=== PATIENT | female | born 1950 | race Caucasian/White ===

== ENCOUNTER → 2016-07-28 | Outpatient (CLI) | payer MEDICARE, BC ==
[2016-07-28 09:38] LABS: Basophils # (A) 0.1 k/uL (0-0.2); Basophils % (A) 1 %; CH 29.2; CHCM 34.5; Eosinophils # (A) 0.2 k/uL (0-0.7); Eosinophils % (A) 4 %; HCT 40.9 % (34.0-46.0); HDW 2.67; HGB 13.5 gm/dL (11.4-16.0); Luc # (Auto) 0.05; Luc % (Auto) 1; Lymphocytes # (A) 1.7 k/uL (1.0-4.8); Lymphocytes % (A) 28 %; MCH 28.1 pg (25.0-35.0); MCV 84.9 fL (80.0-100.0); Mean Platelet Volume 7.7; Monocytes # (A) 0.2 k/uL (0-1.0); Monocytes % (A) 4 %; Neutrophils # (A) 3.8 k/uL (1.3-7.7); Neutrophils % (A) 63 %; RBC 4.82 m/uL (3.80-5.40); RDW 13.1 % (11.5-15.5); WBC 6.1 k/uL (3.8-10.6)
[2016-07-28 10:41] LABS: ALT 30 U/L (9-52); AST 16 U/L (14-36); Alkaline Phosphatase 126 U/L (38-126); Anion Gap 13 mmol/L; Blood Urea Nitrogen 16 mg/dL (7-17); Calcium 9.3 mg/dL (8.4-10.2); Carbon Dioxide 23 mmol/L (22-30); Chloride 104 mmol/L (98-107); Cholesterol 191 mg/dL (<200); Glucose 98 mg/dL (74-99); HDL Cholesterol 54 mg/dL (40-60); Non-African American GFR(MDRD) >60 (>60 ml/min/1.73 sqM); Potassium 4.5 mmol/L (3.5-5.1); Sodium 140 mmol/L (137-145); Total Bilirubin 0.4 mg/dL (0.2-1.3); Total Protein 6.8 g/dL (6.3-8.2); Triglycerides 128 mg/dL (<150)
[2016-07-28 11:31] LABS: Vitamin B12 720 pg/mL
[2016-07-28 12:31] LABS: Erythrocyte Sedimentation Rate 25 mm/hr (0-20)
[2016-07-28 13:51] LABS: Hemoglobin A1C 5.7 % (4.2-6.1)
== END | disposition home or self-care (01) ==
LOC: LABWHC1 08:56
PROVIDERS: ATTEND Family Medicine
DX: R53.83 Other fatigue (principal); I10 Essential (primary) hypertension; E78.5 Hyperlipidemia, unspecified; R20.0 Anesthesia of skin; G89.29 Other chronic pain
CPT/HCPCS: 36415; 80053; 80061; 82607; 83036; 84443; 85025; 85652

== ENCOUNTER → 2016-08-24 | Outpatient (CLI) | payer MEDICARE, BC ==
--- NOTE | 2016-08-24 14:18 | MR ---
EXAMINATION TYPE: MR lumbar spine wo con DATE OF EXAM: 08/24/2016 12:45 PM COMPARISON: NONE HISTORY: Low back pain TECHNIQUE: Multiplanar, multisequence images of the lumbar spine were acquired. L1-L2: Broad-based posterior disc bulge causes mild anterior mass effect on the thecal sac. There is mild facet arthropathy. No significant foraminal encroachment or central stenosis. L2-L3: Normal disc appearance without desiccation. No herniation, protrusion or disc bulging. No ca nal stenosis is present. Foramina are patent bilaterally. L3-L4: Facet arthropathy change is present, there is mild posterior lateral mass effect on the thecal sac. Sequential extension of broad-based disc bulge encroaches mildly on the neural foramina. Mild a nterior mass effect on the thecal sac. L4-L5: Facet arthropathy with hypertrophy ligamentum flavum encroaches on the lateral recesses, circu mferential extension endplate disc complex results in bilateral foraminal encroachment. Left posterio r paracentral disc herniation causes anterolateral mass effect on the thecal sac, there may be synovi al cyst due to facet arthropathy at this level, focus of increased signal on T1 weighted images, inte rmediate to high signal on T2-weighted sequences is present at the left posterior paracentral disc sp twan. L5-S1: Facet arthropathy changes present. Circumferential extension of endplate disc complex encroach es on the neural foramina greater on the left, no significant central canal stenosis, broad-based pos terior disc bulge could possibly contact the proximal S1 nerve roots. Lumbar segments are intact. No paraspinal masses are identified. Conus medullaris has a normal appe arance. There is mild spinal curvature. Loss of disc height and signal is greatest at L4-5 with assoc iated vacuum phenomenon, there is multilevel spondylosis with endplate discogenic marrow signal ma e. Loss of disc height and signal also present L5-S1, L3-4, L1-2. IMPRESSION: Degenerative disc disease, facet arthropathy, foraminal encroachment as described. Post contrast imag es may be of benefit for better evaluation at L4-5 as indicated.
== END | disposition home or self-care (01) ==
LOC: RADMRIMAIN 12:08
PROVIDERS: ATTEND Family Medicine
DX: M51.36 Other intervertebral disc degeneration, lumbar region (principal); M46.96 Unspecified inflammatory spondylopathy, lumbar region
CPT/HCPCS: 72148

== ENCOUNTER → 2016-09-20 | Outpatient (CLI) | payer MEDICARE, BC ==
[2016-09-20 13:02] LABS: Non-African American GFR(MDRD) >60 (>60 ml/min/1.73 sqM)
== END | disposition home or self-care (01) ==
LOC: LABWHC1 12:15
PROVIDERS: ATTEND Psychiatry & Neurology Neurology
DX: Z01.812 Encounter for preprocedural laboratory examination (principal)
CPT/HCPCS: 36415; 82565

== ENCOUNTER 2016-11-04 08:12 | Day surgery (SDC) | payer MEDICARE, BC ==
[~2016-11-04 08:12] MED LIST: LACTATED RINGERS 1,000 ML IV SCH
[2016-11-04 08:46] VITALS: RESP 16; TEMP 98.6
[2016-11-04] MEDS ORDERED: LIDOCAINE 1% 20 ML VIAL (10MG/ML) FOR IV START INTRADERMA ONE (08:50)
[2016-11-04] MEDS ORDERED: MIDAZOLAM 2 MG/2 ML VIAL ONE (09:34)
[2016-11-04] MEDS ORDERED: fentaNYL (PF) 50 MCG/ML 2 ML AMP ONE (09:34)
--- NOTE | 2016-11-04 09:51 | P.PCN ---
Date of Procedure: 11/04/16 Procedure(s) Performed: Procedure=1-lumbar puncture . Preoperative diagnoses= multiple sclerosis. Postoperative diagnosis= multiple sclerosis. Anesthesia= IV sedation with Versed 2 mg and fentanyl 100 mcg and local lidocaine infiltration 1% 2 mL for skin and subcu infiltration. Condition= stable. Complications=none. Indication for the procedure= patient with a history of symptoms suggestive of multiple sclerosis and she was referred to have a lumbar puncture for diagnostic study procedure risk and benefits and alternatives discussed with the patient and she agreed with the preceding, Description of the procedure= patient in the procedure room sitting position and monitors applied, the back prepped with chlorhexidine 3, sterile technique , local infiltration of the skin and subcu interstitial with lidocaine 1% 2 mL, then 22-gauge quickie Needle advanced slowly at L4 5 interlaminar space, the cerebrospinal fluid was clear, and no heme no paresthesia, a total of 10 mL of clear cerebrospinal fluid collected in 4 different tubes, the needle removed , Band-Aid applied , patient tolerated the procedure well without any complications, and further management as per her neurologist
[2016-11-04 10:47] VITALS: BP 131/75; PULSE 55
[2016-11-04] MEDS ORDERED: IV FLUID CONTINUATION 1,000 ML IV ONE (10:49)
[2016-11-04 10:51] LABS: Glucose,CSF 52 mg/dL (40-70)
[2016-11-04 11:41] LABS: Appearance,CSF Clear
[2016-11-10 15:06] LABS: Immunoglobulin G 817 mg/dL (700 - 1600)
== END 2016-11-04 11:05 | disposition home or self-care (01) ==
LOC: ORPAIN 08:12
PROVIDERS: ATTEND Specialist
DX: G35 Multiple sclerosis (principal)
CPT/HCPCS: 84157; 82945; 82040; 82042; 82784; 83916; 89050; 87070; 87205; 62270; 99152; J2250; J3010

== ENCOUNTER → 2016-12-30 | Outpatient (CLI) | payer MEDICARE, BC ==
--- NOTE | 2016-12-30 13:52 | NM ---
EXAMINATION TYPE: NM bone 3 phase DATE OF EXAM: 12/30/2016 COMPARISON: 11/05/2009 HISTORY: Right knee pain Triple phase bone scintigraphy was performed following the injection of25.5 mCi Tc 99m MDP. Immediat e images and 5.5 hours post injection images acquired. FINDINGS: Again noted are bilateral knee prostheses. No evidence for abnormal increased angiographic blood pool accumulation. On delayed images there is increased uptake about the tip of the tibial component sugg esting possible loosening. Similar uptake is seen about the tibial plateau component of the right tib ia. Stable uptake about the left knee relative to thousand and 10. IMPRESSION: Correlate for possible right tibial component loosening.
== END | disposition home or self-care (01) ==
LOC: RADNMMAIN 07:29
PROVIDERS: ATTEND Orthopaedic Surgery
DX: M79.661 Pain in right lower leg (principal)
CPT/HCPCS: 78315; A9503

== ENCOUNTER → 2017-02-10 | Outpatient (CLI) | payer MEDICARE, BC | END | disposition home or self-care (01) | LOC: LABWHC1 13:10 | PROVIDERS: ATTEND Orthopaedic Surgery | DX: Z01.812 Encounter for preprocedural laboratory examination (principal) | CPT/HCPCS: 87070 ==

== ENCOUNTER 2017-03-08 06:33 | Inpatient (IN) | payer MEDICARE, BC ==
[2017-03-01 12:11] VITALS: BMI 36.8
--- NOTE | 2017-03-07 09:19 | HP ---
HISTORY AND PHYSICAL CHIEF COMPLAINT: Right knee pain. HISTORY OF PRESENT ILLNESS: The patient is a 67-year-old retired female who presents with progressive right knee pain for the past 6 months. It is limiting her normal function and activities. It increases after her initial first steps. She had her initial total knee arthroplasty performed in 2002. She denies fevers or chills. PAST MEDICAL HISTORY: Significant for arthritis, asthma, depression, hypertension, reflux disease. PAST SURGICAL HISTORY: Significant for bilateral total knee arthroplasty with subsequent left total knee revision arthroplasty, hysterectomy, polypectomy, vocal cord surgery. CURRENT MEDICATIONS: Current medications include: 1. Hydrochlorothiazide. 2. Nexium. 3. Zoloft. 4. Albuterol inhaler. 5. Nasacort. 6. Tramadol. ALLERGIES: She denies drug allergies. FAMILY HISTORY: Significant for cancer, Parkinson's. SOCIAL HISTORY: Significant for previous tobacco use, however, she quit in 1976. REVIEW OF SYSTEMS: Sixteen point review of systems otherwise reviewed and is noncontributory. PHYSICAL EXAMINATION: On examination, the patient is approximately 5 feet 4 inches, 195 pounds of endomorphic habitus. HEENT exam is nonfocal. Neck is supple. She has painless passive motion to right hip. Straight leg raise is negative. Active motion right knee -6 to 110 degrees of flexion. She has a mild effusion. She is tender about the proximal medial tibia. Collaterals are stable. Her distal neurovascular exam appears to be intact in the right lower extremity. Bone scan report from 12/30/2016 shows increased uptake involving the tibial component. X-rays showed significant lucency below the tibial base plate. 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 RECOMMENDATIONS: I talked to the patient and her regarding her treatment options. At this point, she opts to proceed with surgery. We will plan to proceed with revision arthroplasty. Risks and benefits were discussed at length in layman's terms. We will institute DVT prophylaxis postoperatively. The patient underwent preoperative medical evaluation by Dr. Kinney. BELINDA / MADIHA: [id number] /
[~2017-03-08 06:33] MED LIST changes: +ACETAMINOPHEN TAB 500 MG TAB PO ONE; +DEXAMETHASONE SOD PHOSPHATE 10 MG/ML 1 ML VIAL IV ONE; +HYDROmorphone 1 MG/ML 1 ML SYRINGE IVP PRN; -LACTATED RINGERS 1,000 ML IV SCH; +MELOXICAM 7.5 MG TAB PO ONE; +MIDAZOLAM 2 MG/2 ML VIAL IV PRN; +ONDANSETRON 4 MG/2 ML VIAL IVP ONE; +TRANEXAMIC ACID 1,000 MG in SODIUM CHLORIDE 0.9% 100 ML IVPB ONE; +ceFAZolin 2 GM in SODIUM CHLORIDE 0.9% 100 ML IVPB ONE
[2017-03-08] MEDS: LACTATED RINGERS 1,000 ML IV SCH ×3 (07:30→21:06)
[2017-03-08] MEDS ORDERED: LIDOCAINE 1% 20 ML VIAL (10MG/ML) FOR IV START INTRADERMA ONE (07:31)
[2017-03-08] MEDS ORDERED: fentaNYL (PF) 50 MCG/ML 2 ML AMP IVP ONE ×2 (07:48→08:10)
[2017-03-08] MEDS ORDERED: MIDAZOLAM 2 MG/2 ML VIAL IVP ONE ×2 (07:48→08:09)
[2017-03-08] MEDS ORDERED: TRANEXAMIC ACID 1,000 MG/10 ML VIAL ONE (08:01)
[2017-03-08] MEDS ORDERED: SODIUM CHLORIDE 0.9% 100 ML BAG ONE (08:01)
[2017-03-08] MEDS ORDERED: MIDAZOLAM 2 MG/2 ML VIAL ONE (08:01)
[2017-03-08] MEDS ORDERED: KETAMINE 10 MG/ML 20 ML VIAL ONE (08:01)
[2017-03-08] MEDS ORDERED: fentaNYL (PF) 50 MCG/ML 2 ML AMP ONE (08:01)
[2017-03-08] MEDS ORDERED: PROPOFOL 10 MG/ML 20 ML VIAL IV ONE (08:01)
[2017-03-08] MEDS ORDERED: ROPIVACAINE 246.25 MG, EPINEPHrine 0.5 MG, KETOROLAC 30 MG, cloNIDine HCL/PF 80 MCG, WA... MISCELLANE ONE ×5 (08:03)
[2017-03-08] MEDS ORDERED: ROPIVACAINE 1,100 MG, SODIUM CHLORIDE 0.9% 330 ML MISCELLANE PRN ×2 (08:27)
--- NOTE | 2017-03-08 08:29 | P.ONQ ---
Anesthesiology Proc Note - PNB - Peripheral Nerve Block Performed Right Adductor Canal Indication: Acute Post-Operative Pain, Dx/Pain Location (Dr Mata) Sedation Type: Sedate with meaningful contact maintained Preparation: Sterile Dressing Position: Supine Catheter: Indwelling Needle Types: Other (see comment) (Rafael) Needle Size: 100mm (4") Needle Gauge: 18 Technique: Ultrasound Injectate: 0.5% Ropivacaine (see comment for volume) (20cc) Blood Aspirated: No Pain Paresthesia on Injection Noted: No Resistance on Injection: Normal Events: Uneventful and Well Tolerated
[2017-03-08] MEDS ORDERED: ceFAZolin 3,000 MG in SODIUM CHLORIDE 0.9% IRRIGATIO 3,000 ML IRRIGATION ONE (08:47)
[2017-03-08] MEDS ORDERED: LACTATED RINGERS 1,000 ML IV ONE ×2 (08:49→10:27)
[2017-03-08] MEDS ORDERED: HYDROmorphone 1 MG/ML 1 ML SYRINGE IVP PRN (10:44)
[2017-03-08] MEDS ORDERED: MAGNESIUM HYDROXIDE 2,400 MG/10 ML CUP PO PRN (10:44)
[2017-03-08] MEDS ORDERED: NALOXONE 0.4 MG/ML 1 ML VIAL IV PRN (10:44)
[2017-03-08] MEDS ORDERED: ONDANSETRON 4 MG/2 ML VIAL IVP PRN (10:44)
[2017-03-08] MEDS ORDERED: HYDROcodone/APAP 7.5-325MG 1 EACH TAB PO PRN (10:44)
--- NOTE | 2017-03-08 11:15 | P.OP ---
Date of Procedure: 03/08/17 Preoperative Diagnosis: Aseptic loosening right total knee arthroplasty Postoperative Diagnosis: Same Procedure(s) Performed: Revision right total knee arthroplasty-cemented Implants: Bunny LCCK size E femoral stem, size 4 tibial baseplate, 13 mm x 100 mm femoral stem, 12 mm x 100 mm tibial stem, 17 mm articular surface Anesthesia: regional, local, spinal Surgeon: Octaviano Mata Geophysical Computer #1: Eddi Dewitt Estimated Blood Loss (ml): 100 Pathology: other (Synovial frozen section, bone fragments) Condition: stable Disposition: PACU Indications for Procedure: The patient's a 67-year-old female who recently had undergone right total knee arthroplasty approximately 14 years ago presented with progressive pain and clinically was noted to have evidence of aseptic loosening of her tibial component. A discussion of the risks and benefits of operative intervention was made with the patient. She opted to proceed. Operative risks to include fracture, infection, development of blood clots, possible neurovascular injury, possible loosening of components and need for subsequent procedures was discussed. Informed consent was obtained. Operative Findings: Significant ostial lysis proximal tibia Description of Procedure: The patient was brought to the operating room, and after induction of spinal anesthesia the right lower extremity was prepped and draped in normal fashion. The tourniquet was inflated to 270 mmHg. A longitudinal incision extending 3 finger breaths above the superior pole of the patella extending to the medial aspect the tibial tubercle was then made. Skin and subcutaneous tissues were divided sharply. Electrocautery was used for hemostasis. A medial parapatellar arthrotomy was performed. The medial soft tissues to include the superficial and deep portions of the medial collateral ligament were elevated subperiosteally. The patella was everted. The knee was then flexed. The polyethylene was easily removed. A sagittal saw was used to break the implant bone interface on the femoral and tibial components. The proximal tibial screws were removed. The femoral component was then extracted with minimal bone loss. The tibial component was extracted with minimal bone loss. A cavitary lesion involving the posterior medial proximal tibia was noted. The fibrous tissue was removed. I did send synovial tissue for a stat frozen section that was negative for acute inflammation. I started reaming the tibial canal up to a size 12. The tibial alignment guide was placed for a cleanup proximal tibial cut. The tibia sized most appropriate size 4. The tibia was prepared in the with the appropriate drill and keel punch. A trial size 4 component along with the 12 x 100 mm stem was then placed. There was good fit and stability. The rotation was aligned with the medial one third of the tibial tubercle. The trial component was then removed. Attention was then paid towards preparing the distal femur. The femoral canal was reamed up to a size 13. The distal cutting block was placed in a cleanup cut was made planning on 6 valgus distal cut. The sizing guide was utilized I felt size E was most appropriate. The cutting block was then placed. Rotation was parallel to the anterior femoral cortex. The cutting block was pinned in place. The anterior posterior chamfer cuts were made. I did not feel the need for augments. The proximal cutting guide was placed. The box cut was made with a reciprocating saw. The bone fragment was removed. The trial femoral components placed along with the trial tibial component. A 17 mm articular surfaces placed. I was able to obtain full flexion and extension with good stability with varus and valgus stress. The trial components were then removed. The bony surfaces were prepared with pulsatile lavage and dried. The posterior soft tissues were injected with ropivacaine. The patella was inspected and was felt to be stable. I had good patellofemoral tracking with no hands technique. The tibial component was then cemented in placed and was fully seated. Excess cement was removed. I made sure to cement the cavitary lesion. The femoral component was cemented in placed and was fully seated. Excess cement was removed. The trial 17 mm articular surface was placed. The knee was taken through range of motion. I had good stability in flexion and extension with varus valgus stress. I was able to obtain full flexion and extension. The trial articular surface was removed and the final one inserted. This was fully seated. The capture screw was tightened to the appropriate torque. Pulsatile lavage was again utilized. The medial parapatellar arthrotomy was closed with #2 Ethibond suture. I deflated the tourniquet with approximately 1 hour 47 minutes total tourniquet time. Final hemostasis was obtained with electrocautery. The subcu tissues reapproximated interrupted 2-0 Vicryl sutures. The skin was reapproximated with 3-0 subcuticular strata fix suture. Skin tape and adhesive was applied. A sterile dressing was applied. The patient was awoken from sedation and transferred to the recovery room in good condition. Blood loss was estimated at 1 mL. No complications were incurred. Sponge and needle counts were correct at the end the case.
[2017-03-08] MEDS: HYDROmorphone 1 MG/ML 1 ML SYRINGE IVP PRN (13:13)
--- NOTE | 2017-03-08 14:20 | XR ---
EXAMINATION TYPE: XR knee limited RT DATE OF EXAM: 03/08/2017 COMPARISON: NONE TECHNIQUE: Two views submitted HISTORY: Post op FINDINGS: There is a prosthetic knee in near anatomic alignment. There is soft tissue edema and emphysema. Morgan rgical drain noted. IMPRESSION: 1. Postoperative change. Appears in near-anatomic alignment
[2017-03-08] MEDS: HYDROcodone/APAP 7.5-325MG 1 EACH TAB PO PRN (16:31)
[2017-03-08] MEDS: ceFAZolin 2 GM in SODIUM CHLORIDE 0.9% 100 ML IVPB SCH ×2 (16:32→23:13)
[2017-03-08] MEDS ORDERED: ALBUTEROL NEBULIZED 2.5 MG/3 ML INHALATION PRN (20:48)
[2017-03-08] MEDS: SERTRALINE 100 MG TAB PO SCH (22:56)
[2017-03-08] MEDS: SENNOSIDES-DOCUSATE SODIUM 1 EACH TAB PO SCH (22:56)
[2017-03-08] MEDS: FLUTICASONE 50MCG/SPRAY NASAL 16GM EA NOSTRIL SCH (22:57)
[2017-03-09] MEDS: HYDROcodone/APAP 7.5-325MG 1 EACH TAB PO PRN ×5 (00:08→22:05)
[2017-03-09] MEDS: HYDROmorphone 1 MG/ML 1 ML SYRINGE IVP PRN (01:40)
[2017-03-09 07:29] LABS: Basophils % (A) 0 %; CH 28.1; CHCM 33.8; Eosinophils # (A) 0.1 k/uL (0-0.7); Eosinophils % (A) 1 %; HCT 31.5 % (34.0-46.0); HDW 2.71; HGB 10.4 gm/dL (11.4-16.0); Luc % (Auto) 1; Lymphocytes # (A) 2.4 k/uL (1.0-4.8); Lymphocytes % (A) 24 %; MCH 27.7 pg (25.0-35.0); MCHC 33.2 g/dL (31.0-37.0); MCV 83.4 fL (80.0-100.0); Mean Platelet Volume 8.4; Monocytes # (A) 0.4 k/uL (0-1.0); Monocytes % (A) 4 %; Neutrophils # (A) 7.1 k/uL (1.3-7.7); Neutrophils % (A) 71 %; RBC 3.77 m/uL (3.80-5.40); RDW 15.6 % (11.5-15.5); WBC 10.1 k/uL (3.8-10.6); WBC (Perox) 10.47
--- NOTE | 2017-03-09 08:20 | P.PN ---
Progress Note - Text The patient is status post right adductor canal catheter placement. The catheter was placed for postoperative pain control, status post total right arthroplasty. Ropivacaine 0.2% is infusing at 8 mLs per hour. The patient has no complaints of right lower extremity numbness or weakness. Patient's VAS score is 2-3 -10. Assessment: Patient's adductor canal catheter is in place and working appropriately. Plan: continue infusion and adjust it as needed.
[2017-03-09] MEDS: RIVAROXABAN 10 MG TAB PO SCH (10:05)
[2017-03-09] MEDS: FAMOTIDINE 20 MG TAB PO SCH (10:05)
--- NOTE | 2017-03-09 11:24 | P.PN ---
Subjective Principal diagnosis: Status post excision right total knee arthroplasty Patient seen today resting in her hospital bed, she appears comfortable. States her pain is well-controlled. Sternal therapy. Urinary cath was discontinued. She denies any lightheadedness, headaches, chest pain, shortness of breath. Objective - Vital Signs Vital signs: Vital Signs Temp 98.4 F 03/09/17 01:17 Pulse 102 H 03/09/17 07:24 Resp 18 03/09/17 01:17 BP 137/70 03/09/17 07:24 Pulse Ox 96 03/09/17 07:24 Intake & Output 03/08/17 03/09/17 03/09/17 18:59 06:59 18:59 Intake Total 2881 600 Output Total 300 1090 Balance 2581 -490 Weight 94.347 kg Intake: IV 2301 600 Lactated Ringers 1,000 ml 600 @ 50 mls/hr IV .Q20H JEAN Rx#:[id number] Intake, IV Titration 100 Amount Lactated Ringers 1,000 ml 100 @ 50 mls/hr IV .Q20H JEAN Rx#:[id number] Oral 480 Output: Drainage 150 Right Knee 150 Urine 200 940 Uretheral (Blanchard) 940 Estimated Blood Loss 100 Other: Voiding Method Indwelling Catheter Indwelling Catheter Indwelling Catheter - Exam Right lower extremity: Incision is clean, dry, and intact. Minimal ecchymosis surrounding the anterior aspect of the knee. Calf soft, no tenderness with palpation. Plantar flexion, dorsiflexion, EHL, FHL are intact. Sensation to light touch throughout the extremities intact. Dorsal pedis pulses 2+ - Labs CBC & Chem 7: 03/09/17 06:28 Labs: Abnormal Lab Results - Last 24 Hours (Table) 03/09/17 Range/Units 06:28 RBC 3.77 L (3.80-5.40) m/uL Hgb 10.4 L (11.4-16.0) gm/dL Hct 31.5 L (34.0-46.0) % RDW 15.6 H (11.5-15.5) % Assessment and Plan Plan: Assessment: 1. Post op day #1 status post revision right total knee arthroplasty Plan: 1. Pain control, continue supportive oral medication 2. Continue therapy and use of CPM 3. Encourage incentive spirometer 4. Daily dressing changes/ice and elevate 5. GI and DVT prophylaxis, continue Xarelto 10 mg 6. Medical recommendations 7. Discharge planning: Patient will be likely discharged tomorrow Time with Patient: Less than 30
--- NOTE | 2017-03-09 11:27 | P.DS ---
Providers Date of admission: 03/08/17 06:33 Expected date of discharge: 03/10/17 Attending physician: Octaviano Mata Consults: 03/08/17 10:44 Consult Physician Routine Consulting Provider: Mario Elise Consult Reason/Comments: Medical Management Do you want consulting provider notified?: Yes Primary care physician: Martha Quach Hospital Course: Date of admission: 03/08/2017 Date of discharge: [id number] Admission diagnosis: Status post revision right total knee arthroplasty Discharge diagnosis: Same Attending physician: Dr. Mata Surgical procedures: Revision right total knee arthroplasty Brief history: Patient is a 67-year-old female with a history of of previous right total knee arthroplasty. Patient has noticed increasing pain in the knee for some time, she was evaluated by Dr. Mata in the outpatient setting. At this point patient h was determined after further testing that there was a septic loosening of the implants. Patient wasn't scheduled for a revision right total knee arthroplasty. Hospital course: Details of patient's surgery can be found in operative report. Patient tolerated the procedure well and was subsequently transported to orthopedic floor. Patient's orthopeidc and medical care was provided daily. Patient had daily laboratory tests performed for evaluation of overall blood counts. Patient had daily physical therapy to include strengthening range of motion as well as education with walker ambulation. Patient had daily CPM usage as part of their physical therapy program. Patient was treated with Xarelto for their postoperative DVT prophylaxis during their inpatient stay. Patient was noted to have a relatively uneventful postoperative course. Patient reported satisfactory pain control with oral pain medications by postoperative day 0. Patient showed satisfactory progress with physical therapy. Patient moved steadily through the program and had no difficulty meeting the goals by postoperative day 2. Given patient's otherwise satisfactory course and having met physical therapy goals, plan is to discharge patient home on postoperative day 2. Discharge condition/disposition: Patient will be discharged home in stable condition. Discharge medications: Instructions are given on resumption of patient's normal daily medications per primary care recommendation, in addition patient will be prescribed [place] 7.5 mg/325 mg, Colace 100 mg, Xarelto 10 mg. Discharge instructions: 1. Wound care and infection precautions, keep incision dry and covered while showering, no lotions, creams, moisturizers. No soaking, tubs, pools, hottubs. Do not scrub over the incision. 2. Weight-bear as tolerated with walker / cane until follow-up. 3. Ice and elevate when necessary. Do not exceed 20 minutes per hour with ice pack. 4. Utilize compression sleeve until seen at first follow up appointment. 5. Visiting nursing care. 6. Home physical therapy including home CPM. 7. Pain meds and anticoagulants per prescription. 8. Pain medication has potential to cause constipation. Increase oral fluid and fiber intake. Contact primary care provider if you have not had a bowel movement within 48 hours after discharge 9. No anti-inflammatory medication until discussed at first post operative visit, this including Motrin, Aleve, Mobic, Diclofenac. 10. Follow up in office at 2 weeks postop with Benji Dewitt PA-C 11. Follow up with your primary care doctor 7-10 days after discharge. 12. Contact [facility] with any questions, . Procedures: Revision right total knee arthroplasty Patient Condition at Discharge: Good Plan - Discharge Summary New Discharge Prescriptions: New Rivaroxaban [Xarelto] 10 mg PO DAILY #12 tab Docusate [Colace] 100 mg PO DAILY #30 capsule HYDROcodone/APAP 7.5-325MG [[place] 7.5] 1 - 2 each PO Q6HR PRN #60 tab PRN Reason: Pain No Action Magnesium Gluconate [Magonate] 500 mg PO DAILY Fluticasone/Salmeterol [Advair 250-50 Diskus] 1 puff INHALATION RT-DAILY PRN PRN Reason: Shortness Of Breath Fluticasone Nasal [place] [Flonase Nasal [place]] 1 spr EA NOSTRIL HS Esomeprazole Magnesium [NexIUM] 40 mg PO QAM Cholecalciferol [Vitamin D3] 1,000 unit PO DAILY Biotin 10,000 mcg PO DAILY Albuterol Sulfate [Proair Hfa] 2 puff INHALATION RT-Q6H PRN PRN Reason: Shortness Of Breath traMADol HCL [Ultram] 50 mg PO TID PRN PRN Reason: Pain Sertraline [Zoloft] 100 mg PO HS Aspirin 325 mg PO DAILY Losartan-Hctz 50-12.5 mg [Hyzaar 50-12.5] 1 tab PO QAM Cetirizine HCl 10 mg PO DAILY Discharge Medication List Albuterol Sulfate [Proair Hfa] 2 puff INHALATION RT-Q6H PRN 02/09/16 [History] Biotin 10,000 mcg PO DAILY 02/09/16 [History] Cholecalciferol [Vitamin D3] 1,000 unit PO DAILY 02/09/16 [History] Esomeprazole Magnesium [NexIUM] 40 mg PO QAM 02/09/16 [History] Fluticasone Nasal [place] [Flonase Nasal [place]] 1 spr EA NOSTRIL HS 02/09/16 [ History] Fluticasone/Salmeterol [Advair 250-50 Diskus] 1 puff INHALATION RT-DAILY PRN [History] Magnesium Gluconate [Magonate] 500 mg PO DAILY 02/09/16 [History] Sertraline [Zoloft] 100 mg PO HS 02/10/16 [History] traMADol HCL [Ultram] 50 mg PO TID PRN 02/10/16 [History] Aspirin 325 mg PO DAILY 03/01/17 [History] Cetirizine HCl 10 mg PO DAILY 03/01/17 [History] Losartan-Hctz 50-12.5 mg [Hyzaar 50-12.5] 1 tab PO QAM 03/01/17 [History] Rivaroxaban [Xarelto] 10 mg PO DAILY #12 tab 03/08/17 [Rx] Docusate [Colace] 100 mg PO DAILY #30 capsule 03/10/17 [Rx] HYDROcodone/APAP 7.5-325MG [[place] 7.5] 1 - 2 each PO Q6HR PRN #60 tab 03/10/17 [ Rx] Follow up Appointment(s)/Referral(s): [facility], [NON-STAFF] - Eddi Dewitt PAC [PHYSICIAN WIRE STRETCHER] - 03/25/17 2:10 pm Activity/Diet/Wound Care/Special Instructions: Orthopedic Discharge Instructions: 1. Wound care and infection precautions, keep incision dry and covered while showering, no lotions, creams, moisturizers. No soaking, pools, hot tubs. Do not scrub over incision. 2. Weight-bear as tolerated with walker / cane until follow-up. 3. Ice and elevate when necessary. Do not exceed 20 minutes per hour with ice pack. 4. Utilize compression sleeve until seen at first follow up appointment. 5. Visiting nursing care. 6. Home physical therapy including home CPM. 7. Pain meds and anticoagulants per prescription. 8. Pain medication has potential to cause constipation. Increase oral fluid and fiber intake. Contact primary care provider if you have not had a bowel movement within 48 hours after discharge. 9. No anti-inflammatory medication until discussed at first post operative visit, this including Motrin, Aleve, Mobic, Diclofenac. 10. Follow up in office at 2 weeks postop with Benji Dewitt PA-C 11. Follow up with your primary care doctor 7-10 days after discharge. 12. Contact [facility] with any questions, . Discharge Disposition: HOME WITH HOME HEALTH SERVICES
--- NOTE | 2017-03-09 12:06 | P.CONS ---
History of Present Illness - Reason for Consult Consult date: 03/08/17 Issues regarding antidepressive medications - History of Present Illness Patient is a pleasant 60-year-old female admitted for left knee arthroplasty patient successfully underwent surgery patient denied any fever, chills, nausea , vomiting, abdominal pain, dysuria patient fully catheter was removed and patient has some soreness. Patient is on antihypertensive medications which are being held at this time because of concerns of perioperative hypotension. Review of Systems REVIEW OF SYSTEMS: CONSTITUTIONAL: No fever, no malaise, no fatigue. HEENT: No recent visual problems or hearing problems. Denied any sore throat. CARDIOVASCULAR: No chest pain, orthopnea, PND, no palpitations, no syncope. PULMONARY: No shortness of breath, no cough, no hemoptysis. GASTROINTESTINAL: No diarrhea, no nausea, no vomiting, no abdominal pain. Normoactive bowel sounds. NEUROLOGICAL: No headaches, no weakness, no numbness. HEMATOLOGICAL: Denies any bleeding or petechiae. GENITOURINARY: Denies any burning micturition, frequency, or urgency. MUSCULOSKELETAL/RHEUMATOLOGICAL: Denies any joint pain, swelling, or any muscle pain. ENDOCRINE: Denies any polyuria or polydipsia. The rest of the 14-point review of systems is negative. Past Medical History Past Medical History: Asthma, GERD/Reflux, Hypertension, Osteoarthritis (OA) Additional Past Medical History / Comment(s): CONSTIPATION/DIARRHEA on occassion. Chronic back pain. Cut right hand 6 months ago with chainsaw, had stitches. History of Any Multi-Drug Resistant Organisms: None Reported Past Surgical History: Hysterectomy, Joint Replacement Additional Past Surgical History / Comment(s): ANAHY KNEES ARTHROSCOPY AND REPLACEMENT, throat surgery, pain clinic procedures. Past Anesthesia/Blood Transfusion Reactions: No Reported Reaction Past Psychological History: Anxiety, Depression Smoking Status: Former smoker Past Alcohol Use History: Rare Additional Past Alcohol Use History / Comment(s): QUIT SMOKING IN 1970'S, SMOKED 1 AND 1/2 PPD, STARTED IN Past Drug Use History: None Reported Additional Drug Use History / Comment(s): "ORANGE WEDGE IN THE 60S" - Past Family History Father Family Medical History: Cancer Additional Family Medical History / Comment(s): Throat cancer Sister(s) Family Medical History: Cancer Additional Family Medical History / Comment(s): 2 AUNTS BREAST CANCER Medications and Allergies Home Medications Medication Instructions Recorded Confirmed Type Albuterol Sulfate [Proair Hfa] 2 puff INHALATION RT-Q6H PRN 02/09/16 03/08/17 History Biotin 10,000 mcg PO DAILY 02/09/16 03/08/17 History Cholecalciferol [Vitamin D3] 1,000 unit PO DAILY 02/09/16 03/08/17 History Esomeprazole Magnesium [NexIUM] 40 mg PO QAM 02/09/16 03/08/17 History Fluticasone Nasal [place] [Flonase 1 spr EA NOSTRIL HS 02/09/16 03/08/17 History Nasal [place]] Fluticasone/Salmeterol [Advair 1 puff INHALATION RT-DAILY PRN 02/09/16 03/08/17 History 250-50 Diskus] Magnesium Gluconate [Magonate] 500 mg PO DAILY 02/09/16 03/08/17 History Sertraline [Zoloft] 100 mg PO HS 02/10/16 03/08/17 History traMADol HCL [Ultram] 50 mg PO TID PRN 02/10/16 03/08/17 History Aspirin 325 mg PO DAILY 03/01/17 03/08/17 History Cetirizine HCl 10 mg PO DAILY 03/01/17 03/08/17 History Losartan-Hctz 50-12.5 mg [Hyzaar 1 tab PO QAM 03/01/17 03/08/17 History 50-12.5] Rivaroxaban [Xarelto] 10 mg PO DAILY #12 tab 03/08/17 Rx Allergies Allergy/AdvReac Type Severity Reaction Status Date / Time No Known Allergies Allergy Verified 03/08/17 18:06 Physical Exam Vitals: Vital Signs Temp Pulse Pulse Resp BP Pulse Ox 03/09/17 07:24 102 H 137/70 96 03/09/17 01:17 98.4 F 74 18 128/68 93 L 03/09/17 00:00 16 03/08/17 20:33 98.0 F 78 16 112/84 96 03/08/17 20:00 16 03/08/17 13:00 71 143/82 96 03/08/17 12:45 88 117/96 93 L 03/08/17 12:30 89 112/68 97 03/08/17 12:15 84 117/75 98 Intake and Output 03/08/17 03/09/17 03/09/17 22:59 06:59 14:59 Intake Total 200 400 Output Total 50 1040 500 Balance 150 -640 -500 Intake: IV 200 400 Lactated Ringers 1,000 ml 200 400 @ 50 mls/hr IV .Q20H JEAN Rx#:[id number] Output: Drainage 50 100 Right Knee 50 100 Urine 940 500 Uretheral ([place]) 940 500 Other: Voiding Method Indwelling Catheter Indwelling Catheter PHYSICAL EXAMINATION: GENERAL: The patient is alert and oriented x3, not in any acute distress. Well developed, well nourished. HEENT: Pupils are round and equally reacting to light. EOMI. No scleral icterus. No conjunctival pallor. Normocephalic, atraumatic. No pharyngeal erythema. No thyromegaly. CARDIOVASCULAR: S1 and S2 present. No murmurs, rubs, or gallops. PULMONARY: Chest is clear to auscultation, no wheezing or crackles. ABDOMEN: Soft, nontender, nondistended, normoactive bowel sounds. No palpable organomegaly. MUSCULOSKELETAL: Deferred to orthopedic surgery EXTREMITIES: No cyanosis, clubbing, or pedal edema. NEUROLOGICAL: Gross neurological examination did not reveal any focal deficits. SKIN: No rashes. Results CBC & Chem 7: 03/09/17 06:28 Labs: Abnormal Lab Results - Last 24 Hours (Table) 03/09/17 Range/Units 06:28 RBC 3.77 L (3.80-5.40) m/uL Hgb 10.4 L (11.4-16.0) gm/dL Hct 31.5 L (34.0-46.0) % RDW 15.6 H (11.5-15.5) % Assessment and Plan Plan: #1 right total knee arthroplasty: Pain management due to prophylaxis per primary service. We will monitor for perioperative complications which patient doesn't have any at this point of time. #2 hypertension: Hold off her home antidepressive medication except for beta leeann with concerns of perioperative hypotension is expected after surgery. Can be resumed at the time of discharge. Next line #3 asthma: Patient is not in acute exacerbation #4 gastroesophageal reflux disease next and #5 osteoarthritis For above-mentioned chronic medical problems patient can continue her home medications. We'll follow the patient on as-needed basis thank you for letting [facility] in this patient's care.
[2017-03-09] MEDS: traMADol 50 MG TAB PO PRN ×2 (13:51→19:35)
[2017-03-09] MEDS: SENNOSIDES-DOCUSATE SODIUM 1 EACH TAB PO SCH (20:55)
[2017-03-09] MEDS: FLUTICASONE 50MCG/SPRAY NASAL 16GM EA NOSTRIL SCH (20:56)
[2017-03-09] MEDS: SERTRALINE 100 MG TAB PO SCH (20:56)
[2017-03-09] MEDS: LOSARTAN-HCTZ 50-12.5 MG 1 EACH TAB PO SCH (21:28)
[2017-03-10] MEDS: traMADol 50 MG TAB PO PRN ×3 (01:02→13:29)
[2017-03-10] MEDS ORDERED: LABETALOL 200 MG TAB PO STA (03:16)
[2017-03-10] MEDS: HYDROcodone/APAP 7.5-325MG 1 EACH TAB PO PRN (03:43)
[2017-03-10 04:42] VITALS: PULSE 85
[2017-03-10 07:17] VITALS: RESP 16; TEMP 98.4
[2017-03-10] MEDS: LOSARTAN-HCTZ 50-12.5 MG 1 EACH TAB PO SCH (09:47)
[2017-03-10 09:49] VITALS: BP 104/66
--- NOTE | 2017-03-10 10:33 | P.PN ---
Subjective Principal diagnosis: Status post excision right total knee arthroplasty Patient seen today resting in her hospital bed, she appears comfortable. She denies any lightheadedness, headaches, chest pain, shortness of breath. Objective - Vital Signs Vital signs: Vital Signs Temp 98.4 F 03/10/17 07:00 Pulse 85 03/10/17 07:00 Resp 16 03/10/17 07:00 BP 104/66 03/10/17 09:48 Pulse Ox 95 03/10/17 07:00 Intake & Output 03/09/17 03/10/17 03/10/17 18:59 06:59 18:59 Intake Total 100 Output Total 500 Balance -400 Intake: IV 100 Lactated Ringers 1,000 ml 100 @ 50 mls/hr IV .Q20H JEAN Rx#:[id number] Output: Urine 500 Uretheral ([place]) 500 Other: Voiding Method Indwelling Catheter Toilet # Voids 1 - Exam Right lower extremity: Incision is clean, dry, and intact. Minimal ecchymosis surrounding the anterior aspect of the knee. Calf soft, no tenderness with palpation. Plantar flexion, dorsiflexion, EHL, FHL are intact. Sensation to light touch throughout the extremities intact. Dorsal pedis pulses 2+ - Labs CBC & Chem 7: 03/09/17 06:28 Assessment and Plan Plan: Assessment: 1. Post op day #2 status post revision right total knee arthroplasty Plan: 1. Pain control, will be discharged home on oral medication 2. Continue therapy and use of CPM 3. Encourage incentive spirometer 4. Daily dressing changes/ice and elevate 5. GI and DVT prophylaxis, will be discharged home on Xarelto 10 mg 6. Medical recommendations 7. Discharge planning: Patient will be discharged home today Time with Patient: Less than 30
[2017-03-10] MEDS: RIVAROXABAN 10 MG TAB PO SCH (11:13)
[2017-03-10] MEDS: FAMOTIDINE 20 MG TAB PO SCH (11:13)
--- NOTE | 2017-03-10 13:55 | P.PN ---
Subjective Patient is a pleasant 60-year-old female admitted for left knee arthroplasty patient successfully underwent surgery, clinically doing well is being discharged today. I did review the medication reconciliation Hyzaar will be held until she sees her primary doctor as her blood pressure is on the low normal side with systolics going up to as low as high 90s and low 100s which is not unexpected of post surgery. Patient denied any fever, chills, chest pain, nausea, vomiting dysuria. Objective - Vital Signs Vital signs: Vital Signs Temp 98.4 F 03/10/17 07:00 Pulse 85 03/10/17 07:00 Resp 16 03/10/17 07:00 BP 104/66 03/10/17 09:48 Pulse Ox 95 03/10/17 07:00 Intake & Output 03/09/17 03/10/17 03/10/17 18:59 06:59 18:59 Intake Total 100 Output Total 500 Balance -400 Intake: IV 100 Lactated Ringers 1,000 ml 100 @ 50 mls/hr IV .Q20H JEAN Rx#:[id number] Output: Urine 500 Uretheral ([place]) 500 Other: Voiding Method Indwelling Catheter Toilet # Voids 1 3 - Exam GENERAL: The patient is alert and oriented x3, not in any acute distress. Well developed, well nourished. HEENT: Pupils are round and equally reacting to light. EOMI. No scleral icterus. No conjunctival pallor. Normocephalic, atraumatic. No pharyngeal erythema. No thyromegaly. CARDIOVASCULAR: S1 and S2 present. No murmurs, rubs, or gallops. PULMONARY: Chest is clear to auscultation, no wheezing or crackles. ABDOMEN: Soft, nontender, nondistended, normoactive bowel sounds. No palpable organomegaly. MUSCULOSKELETAL: Deferred to orthopedic surgery EXTREMITIES: No cyanosis, clubbing, or pedal edema. NEUROLOGICAL: Gross neurological examination did not reveal any focal deficits. SKIN: No rashes. - Labs CBC & Chem 7: 03/09/17 06:28 Assessment and Plan Plan: #1 right total knee arthroplasty: Pain management due to prophylaxis per primary service. We will monitor for perioperative complications which patient doesn't have any at this point of time. #2 hypertension: #3 asthma: Patient is not in acute exacerbation #4 gastroesophageal reflux disease next and #5 osteoarthritis Patient can be discharged and patient is medically stable to be discharged and a had antidepressive medication need to be held until cc her primary doctor
== END 2017-03-10 14:10 | disposition home health service (06) | DRG 468 ==
LOC: 2ORMAIN 06:33 → 3SUR 11:36
PROVIDERS: ADMIT Orthopaedic Surgery; ATTEND Orthopaedic Surgery
PROC: 0SPC0JZ Removal of Synthetic Substitute from Right Knee Joint, Open Approach (ICD-10-PCS; principal; 2017-03-08 08:00)
PROC: 0SRC0J9 Replacement of Right Knee Joint with Synthetic Substitute, Cemented, Open Approach (ICD-10-PCS; principal; 2017-03-08 08:00)
DX: T84.032A Mechanical loosening of internal right knee prosthetic joint, initial encounter (principal); I10 Essential (primary) hypertension; J45.909 Unspecified asthma, uncomplicated; K21.9 Gastro-esophageal reflux disease without esophagitis; Y83.1 Surgical operation with implant of artificial internal device as the cause of abnormal reaction of the patient, or of later complication, without mention of misadventure at the time of the procedure; Z79.01 Long term (current) use of anticoagulants; Z79.82 Long term (current) use of aspirin; Z79.899 Other long term (current) drug therapy; Z80.3 Family history of malignant neoplasm of breast; Z80.8 Family history of malignant neoplasm of other organs or systems; Z82.0 Family history of epilepsy and other diseases of the nervous system; Z87.891 Personal history of nicotine dependence
CPT/HCPCS: 85025; 88305; 88331; 94760

== ENCOUNTER → 2017-06-23 | Outpatient (CLI) | payer MEDICARE, BC ==
[2017-06-23 13:15] LABS: ALT 36 U/L (9-52); AST 19 U/L (14-36); Alkaline Phosphatase 128 U/L (38-126); Anion Gap 9 mmol/L; Blood Urea Nitrogen 20 mg/dL (7-17); Calcium 9.6 mg/dL (8.4-10.2); Carbon Dioxide 29 mmol/L (22-30); Chloride 103 mmol/L (98-107); Cholesterol 220 mg/dL (<200); Glucose 101 mg/dL (74-99); HDL Cholesterol 67 mg/dL (40-60); Non-African American GFR(MDRD) >60 (>60 ml/min/1.73 sqM); Potassium 4.7 mmol/L (3.5-5.1); Sodium 141 mmol/L (137-145); Total Bilirubin 0.3 mg/dL (0.2-1.3); Total Protein 6.6 g/dL (6.3-8.2)
== END | disposition home or self-care (01) ==
LOC: LABWHC1 11:43
PROVIDERS: ATTEND Family Medicine
DX: E78.5 Hyperlipidemia, unspecified (principal); I10 Essential (primary) hypertension
CPT/HCPCS: 36415; 80053; 80061

== ENCOUNTER → 2018-01-09 | Outpatient (CLI) | payer MEDICARE, BC ==
[2018-01-09 10:25] LABS: Basophils # (A) 0.1 k/uL (0-0.2); Basophils % (A) 1 %; Eosinophils # (A) 0.3 k/uL (0-0.7); Eosinophils % (A) 5 %; HCT 37.5 % (34.0-46.0); HGB 12.6 gm/dL (11.4-16.0); Lymphocytes # (A) 2.1 k/uL (1.0-4.8); Lymphocytes % (A) 34 %; MCH 27.7 pg (25.0-35.0); MCHC 33.5 g/dL (31.0-37.0); MCV 82.7 fL (80.0-100.0); Mean Platelet Volume 7.3; Monocytes # (A) 0.2 k/uL (0-1.0); Monocytes % (A) 4 %; Neutrophils # (A) 3.3 k/uL (1.3-7.7); Neutrophils % (A) 55 %; Platelet Count 263 k/uL (150-450); RBC 4.53 m/uL (3.80-5.40); RDW 14.5 % (11.5-15.5)
[2018-01-09 10:51] LABS: ALT 29 U/L (9-52); AST 18 U/L (14-36); Albumin 3.9 g/dL (3.5-5.0); Alkaline Phosphatase 112 U/L (38-126); Anion Gap 5 mmol/L; Blood Urea Nitrogen 18 mg/dL (7-17); Calcium 9.3 mg/dL (8.4-10.2); Carbon Dioxide 30 mmol/L (22-30); Chloride 105 mmol/L (98-107); Cholesterol 200 mg/dL (<200); Glucose 101 mg/dL (74-99); HDL Cholesterol 56 mg/dL (40-60); LDL Cholesterol,Calculated 125 mg/dL (0-99); Potassium 4.7 mmol/L (3.5-5.1); Sodium 140 mmol/L (137-145); Total Bilirubin 0.2 mg/dL (0.2-1.3); Total Protein 6.5 g/dL (6.3-8.2); Triglycerides 94 mg/dL (<150)
== END | disposition home or self-care (01) ==
LOC: LABWHC1 09:34
PROVIDERS: ATTEND Family Medicine
DX: I10 Essential (primary) hypertension (principal)
CPT/HCPCS: 36415; 80053; 80061; 85025

== ENCOUNTER → 2018-08-01 | Outpatient (CLI) | payer MEDICARE, BC ==
[2018-08-01 13:05] LABS: Basophils # (A) 0.1 k/uL (0-0.2); Basophils % (A) 1 %; Eosinophils # (A) 0.4 k/uL (0-0.7); Eosinophils % (A) 6 %; HCT 38.3 % (34.0-46.0); HGB 12.4 gm/dL (11.4-16.0); Lymphocytes # (A) 2.2 k/uL (1.0-4.8); Lymphocytes % (A) 33 %; MCH 27.4 pg (25.0-35.0); MCHC 32.4 g/dL (31.0-37.0); MCV 84.6 fL (80.0-100.0); Mean Platelet Volume 7.6; Monocytes # (A) 0.2 k/uL (0-1.0); Monocytes % (A) 4 %; Neutrophils # (A) 3.8 k/uL (1.3-7.7); Neutrophils % (A) 56 %; Platelet Count 283 k/uL (150-450); RBC 4.53 m/uL (3.80-5.40); RDW 14.7 % (11.5-15.5); WBC 6.8 k/uL (3.8-10.6)
[2018-08-01 20:45] LABS: Albumin 4.1 g/dL (3.80-4.90); Albumin/Globulin Ratio 1.95 (1.60-3.17); Anion Gap 7.8 mmol/L (4.00-12.00); Calcium 9.2 mg/dL (8.7-10.3); Carbon Dioxide 26.2 mmol/L (21.6-31.8); Globulin 2.1 g/dL (1.6-3.3); LDL Cholesterol,Calculated 131.4 mg/dL (0.0-131.0); Potassium 4.8 mmol/L (3.5-5.5); Total Bilirubin 0.3 mg/dL (0.3-1.2); Total Protein 6.2 g/dL (6.2-8.2); VLDL Calculation 15.6 mg/dL (5.00-40.00)
== END | disposition home or self-care (01) ==
LOC: LABWHC1 11:57
PROVIDERS: ATTEND Family Medicine
DX: I10 Essential (primary) hypertension (principal)
CPT/HCPCS: 36415; 80053; 80061; 85025

== ENCOUNTER → 2023-10-05 | Outpatient (CLI) | payer MEDICARE ==
[2023-10-05 10:12] VITALS: BP 124/82; PULSE 73; RESP 15; TEMP 98.5
--- NOTE | 2023-10-05 13:48 | P.PAINPG ---
PQRS Measure Charge Sheet Comment: HISTORY OF PRESENT ILLNESS: A 73 yr old female as a referral from [facility] presents today w severe and chronic LBP x 1 yr secondary to DDD, spondylosis and facet arthropathy without myelopathy for evaluation. Pt states pain level is provoked at 9 /10 in intensity, constant, localized in the lumbar spine, predominantly axial, tingling in character w occasional shooting pain towards the back of the LEs. Pain is provoked by walking, standing for periods > 10 min. Pain is alleviated by PT in 2019, physician guided exercises twice daily since Sep 12 2023, heat, medications (Tramadol, Tyl), BioFreeze topical, repositioning and rest. Oswestry axial pain score at 31. PMH: OA, Asthma, GERD, HTN, MDD/ Anxiety PSH: Total R Knee Arthroplasty (2017), BL Knee Replacement, Hysterectomy, Throat Surgery SH: Former tobacco user, No ETOH use, Denies illicit drug use FH: Fa- Esophageal CA. Sis- CA. Aunt x2- Breast CA All: See list Meds: See list REVIEW OF ORGAN SYSTEMS: CONSTITUTIONAL: No fevers or chills. No recent weight loss. NEUROLOGICAL: + numbness and tingling along the distal extremities. No seizure disorders or headaches. MUSCULOSKELETAL: + pain PSYCHIATRIC: Denies current depression or suicidal thou ghts. Physical Examinations : Constitutional : Cooperative , not in acute distress . Neurologic : Cranial nerve II to XII intact. No focal neurological deficits. Psychiatric : alert & oriented x 3. Matching mood & appropriate affect. Judgment & insight intact. Musculoskeletal : Cervical Spine Motor strength in the deltoid and biceps: Normal right side. Normal Left side Motor strength biceps and the wrist extensors: Normal right side . Normal left side Motor strength in the triceps muscle: Normal right side. Normal left side Deep tendon reflexes: Normal at the biceps. Normal at Brachioradialis. Normal at triceps Vertebral body tenderness to deep palpation over Cervical facet loading test: positive bilaterally Spurling test: positive bilaterally Neck distraction test: positive bilaterally Fanny sign: positive bilaterally Lumbar spine Motor strength lower extremities ,thigh and legs 5/5 Right side , 5/5 Left side Deep tendon reflexes : Normal Knee Jerk. Normal Ankle Jerk Vertebral body tenderness over L4 Shay Test positive L3-L5 Lumbar facet Loading Test: positive Right / positive Left Range of motion of the lumbar spine Flexion 30 degrees, extension 10 degrees Straight Leg Raise test: Left/ Right positive at degree Paulie test: positive right / positive left. Severe tenderness over the Sacroiliac joint on the Right / Left sides Gaenslen test: positive bilaterally Seated flexion test: positive bilaterally. Sacral spine : Severe tenderness over the Sacroiliac joint: right side / left side Range of motion: Flexion of the lumbar spine <60 degrees Range of motion: Extension of the lumbar spine <20 degrees Gaenslen's Test positive Paulie test: positive right side / left side Thigh Thrust Test Sacral Thrust Test Imaging: x ray of the lumbar spine from 09/12/23 Assessment/ Plan : Lumbar DDD Recommendation of MRI lumbar spine M51.36 . Would benefit fr COLTON L3-L4 or L TFESI L4-L5. All questions answered. I have spent greater than 30 minutes on patient care today. Dr Tavares was available by phone for the evaluation of this patient. The time was used to review the medical records including relevant urine studies and Prescription history (MAPs), review of the available imaging, evaluation and examination of the patient, coordination of care with the medical staff and if applicable referring physicians, as well as creation of the medical record - Pain Location Bilateral Lower Back Non-Pharmacological Interventions: Heat, Position/Reposition Pharmacological Interventions: Scheduled Medication PQRS Narrative: Smoking Status Former smoker Home Medications: Ambulatory Orders Albuterol Sulfate [Proair Hfa] 2 puff INHALATION RT-Q6H PRN 02/09/16 Biotin 10,000 mcg PO DAILY 02/09/16 Cholecalciferol [Vitamin D3] 1,000 unit PO DAILY 02/09/16 Esomeprazole Magnesium [NexIUM] 40 mg PO QAM 02/09/16 Fluticasone Nasal [place] [Flonase Nasal [place]] 1 spr EA NOSTRIL HS 02/09/16 Fluticasone Propion/Salmeterol [Advair 250-50 Diskus] 1 puff INHALATION RT-DAILY PRN 02/09/16 Magnesium Gluconate [Magonate] 500 mg PO DAILY 02/09/16 Sertraline [Zoloft] 100 mg PO HS 02/10/16 traMADol HCL [Ultram] 50 mg PO TID PRN 02/10/16 Cetirizine HCl 10 mg PO DAILY 03/01/17 Rivaroxaban [Xarelto] 10 mg PO DAILY #12 tab 03/08/17 Docusate [Colace] 100 mg PO DAILY #30 capsule 03/10/17 HYDROcodone/APAP 7.5-325MG [[place] 7.5] 1 - 2 each PO Q6HR PRN #60 tab 03/10/17 HYDROcodone/APAP 7.5-325MG [[place] 7.5-325] 1 tab PO Q4-6H PRN 3 Days #15 tab 10/05/23 Controlled Substance Measures - Controlled Substance Measures Is patient prescribed a controlled substance at discharge?: Yes When asked, does pt state using other controlled substances?: Yes If prescribed controlled substance>3 days was MAPS reviewed?: Prescribed <3 Days
== END ==
LOC: PNWHC3 09:20
PROVIDERS: ATTEND Specialist
DX: M51.36 Other intervertebral disc degeneration, lumbar region (principal); F12.90 Cannabis use, unspecified, uncomplicated; Z87.891 Personal history of nicotine dependence
CPT/HCPCS: 99211

== ENCOUNTER → 2023-10-25 | Outpatient (CLI) | payer MEDICARE ==
--- NOTE | 2023-10-25 07:30 | MR ---
EXAMINATION TYPE: MR lumbar spine wo con DATE OF EXAM: 10/25/2023 6:51 AM CLINICAL INDICATION:Female, 73 years old with history of M51.36 lumbar DDD; PHH, Lower back pain with LLE radiculopathy. COMPARISON: None TECHNIQUE: Multi planar, multi sequence imaging was performed utilizing: T1-weighted, T2-weighted, a nd turbo inversion recovery imaging of the lumbar spine. IV Contrast: (None if empty) FINDINGS: Alignment: The lumbar vertebral bodies have preserved heights and alignment. Cord: The conus medullaris and the distal spinal cord appear unremarkable with regards to their signa l intensity and morphology. Bones/Discs: Moderate degeneration changes throughout the spine with osteophyte formation and facet j oint arthropathy. Multilevel disc desiccation is present. T12-L1: No evidence of significant spinal canal stenosis or neural foraminal stenosis. L1-L2: Disc bulge and facet joint arthropathy result in mild spinal canal and mild to moderate bilate ral neural foraminal stenosis. L2-L3: Disc bulge and facet joint arthropathy result in mild spinal canal and moderate bilateral neur al foraminal stenosis. L3-L4: Disc bulge and facet joint arthropathy result in moderate spinal canal and moderate to severe bilateral neural foraminal stenosis. L4-L5: Left central disc protrusion which closely approximates left sided nerve roots. Facet joint ar thropathy result in mild spinal canal and moderate to severe bilateral neural foraminal stenosis. L5-S1: The disc is rounded posterior morphology without significant spinal canal stenosis. Facet join t arthropathy with moderate bilateral neural foraminal stenosis. Extraforaminal osteophyte closely ap proximates the exiting left L5 nerve series 601 image 3. No significant spinal canal or neural foraminal stenosis in the remainder of the visualized levels. Other findings: None. IMPRESSION: 1. L4-L5 left central disc protrusion which closely approximates left nerve roots in the spinal linda l. 2. Moderate disc degeneration with associated osteoarthritic changes with neural foraminal stenosis worse at L3-L4 L4-L5 and L5-S1. Additionally there is an extraforaminal osteophyte which closely appr oximates the exiting left L5-S1 nerve 3. Spinal canal stenosis worse at L3-L4 with moderate stenosis.
== END | disposition home or self-care (01) ==
LOC: RADMRIMAIN 06:05
PROVIDERS: ATTEND Specialist
DX: M51.37 Other intervertebral disc degeneration, lumbosacral region (principal); M51.16 Intervertebral disc disorders with radiculopathy, lumbar region; M25.78 Osteophyte, vertebrae; M99.73 Connective tissue and disc stenosis of intervertebral foramina of lumbar region
CPT/HCPCS: 72148

== ENCOUNTER → 2023-10-27 | Outpatient (CLI) | payer MEDICARE ==
[2023-10-27 10:08] VITALS: BP 163/71; PULSE 102; RESP 16; TEMP 98.3
--- NOTE | 2023-10-27 11:52 | P.PAINPG ---
Subjective Progress Note Date: 10/27/23 Principal diagnosis: lumbar back pain Ms. Grimes is a 73 -year-old pleasant [facility]alecame [facility]. Patient has ongoing pain for many years. Patient describes pain is aching, throbbing, constant type of pain. Pain is radiating to left lower extremity sometimes. Patient rated pain levels are5-6 out of 10 in severity. With the help of medications pain levels are 5-6out of 10 in severity. Activities making pain worse. she tried lumbar epidural straight injection in the past which was helpful. Medications, resting,physical therapy helping in relieving patient's pain. Patient pain some days better than others. Overall activities decreased secondary to pain. Because of the pain sometimes patient is feeling lack of sleep, interest, and energy. Denied any side effects with the medications. Denied any bowel or bladder problems at this time. Patient denies any suicidal or homicidal ideations intent or plan. Patient denies any auditory or visual hallucinations. Patient denied any red flag symptoms related to pain. Objective - Vital Signs Vital signs: Vital Signs Temp 98.3 F 10/27/23 09:36 Pulse 102 H 10/27/23 09:36 Resp 16 10/27/23 09:36 BP 163/71 10/27/23 09:36 Pulse Ox 95 10/27/23 09:36 FiO2 Intake & Output 10/26/23 10/27/23 10/27/23 18:59 06:59 18:59 Weight 90.718 kg - Exam General: Well-developed, well-nourished, no acute distress HEENT: Normocephalic, and atraumatic Neck: Supple, no neck swelling Psychiatric: Appropriate mood, and affect ACCOUNT RESOLUTION EXPERT: No focal neurological deficits Musculoskeletal: Upper extremity: Normal strength, and range of motion. Sensation grossly intact Lower extremity: Normal strength, and normal strength Lumbar spine: Paravertebral tenderness: positive Lumbar facet load test : positive Sacroiliac joint tenderness: negative Straight leg raising test: negative - Constitutional Constitutional Comment(s): upon review of symptoms negative except as mentioned in the history of present illness Assessment and Plan Assessment: lumbar spondylosis without myelopathy Lumbar disc protrusion at L4-L5, and spinal canal stenosis at L3-L4 lumbar myofascial pain syndrome Plan: #1 Diagnoses, prognosis, and multiple treatment options including but not limited to physical therapy, interventional therapy, adjunct medication therapy, narcotic medication, and surgical options were discussed with the patient. And all questions were answered to the patient's satisfaction. #2 treatment plan agreement : Patient was thoroughly discussed regarding the treatment options, alternatives, and importance of exercises as tolerated. Patient clearly understood. #3 Patient was counseled on importance of regular exercise. Including araceli chi, aerobic exercises as tolerated. Which helps for chronic pain, and overall well- being. #4 investigations: MAPS- reviewed , urine drug test- blood and #5 diagnostic tests: none #6 consultation :continue home exercise program at home # 7 interventional procedures:lumbar epidural steroid injection at L4-L5. Procedure, complications, alternatives discussed with the patient. #8 medications none #9 morphine milligrams equivalents dose ( MME) per day:0 from the pain clinic # 10 TENS unit's, and percussion massage device #11 disposition: scheduled to follow up with pain clinic in 8 weeks duration. Time with Patient: Less than 30 PQRS Measure Charge Sheet Measure #130: Documentation of Current Meds in Medical Chart: Patient's medications documented in chart Measure #226: Tobacco Use: Screen & Cessation Intervention: Pt not a tobacco user Measure #111: Pneumonia Vaccination: Pneumococcal vaccine administered or previously received Measure #47: Advance Care Plan: Advance care planning discussed & documented, plan or surrogate given Measure #412: Opioid Treatment Agreement: No documentation of signed opioid treatment agreement Measure #408: Opioid Therapy Follow-up Evaluation: Patient had NO f/u eval minimum every 3 months during opioid therapy Measure #317: Preventitive Care & Scrn High Bld Press & F/U: Pre-hypertensive or hypertensive BP documented, pt will f/u with PCP Measure #128: Body Mass Index (BMI) Screening & Follow-up: BMI documented ABOVE normal parameters - f/u documented Measure #131: Pain Assessment & Follow-up: Pain positive & plan documented Measure #431: Unhealthy Alcohol Use Preventative Care & Scrn: Patient not identified as an unhealthy alcohol user Mode of Arrival: Ambulatory - Pain Location Bilateral Lower Back Non-Pharmacological Interventions: Heat, Ice, Inactivity, Physical Therapy, Relaxation Technique, Sitting Pharmacological Interventions: PRN Medication, Scheduled Medication, Topical Medication PQRS Narrative: Smoking Status Former smoker Blood Pressure 163/71 Pain Intensity [Bilateral 3 Lower Back] Scale Used Numeric (1 - 10) Hx Alcohol Use (MH) No Home Medications: Ambulatory Orders Albuterol Sulfate [Proair Hfa] 2 puff INHALATION RT-Q6H PRN 02/09/16 Biotin 10,000 mcg PO DAILY 02/09/16 Cholecalciferol [Vitamin D3] 1,000 unit PO DAILY 02/09/16 Esomeprazole Magnesium [NexIUM] 40 mg PO QAM 02/09/16 Fluticasone Nasal [place] [Flonase Nasal [place]] 1 spr EA NOSTRIL HS 02/09/16 Fluticasone Propion/Salmeterol [Advair 250-50 Diskus] 1 puff INHALATION RT-DAILY PRN 02/09/16 Magnesium Gluconate [Magonate] 500 mg PO DAILY 02/09/16 Sertraline [Zoloft] 100 mg PO HS 02/10/16 traMADol HCL [Ultram] 50 mg PO TID PRN 02/10/16 Cetirizine HCl 10 mg PO DAILY 03/01/17 Rivaroxaban [Xarelto] 10 mg PO DAILY #12 tab 03/08/17 Docusate [Colace] 100 mg PO DAILY #30 capsule 03/10/17 HYDROcodone/APAP 7.5-325MG [[place] 7.5] 1 - 2 each PO Q6HR PRN #60 tab 03/10/17 HYDROcodone/APAP 7.5-325MG [[place] 7.5-325] 1 tab PO Q4-6H PRN 3 Days #15 tab 10/05/23 Controlled Substance Measures - Controlled Substance Measures Is patient prescribed a controlled substance at discharge?: No
== END ==
LOC: PNWHC3 07:57
DX: M48.061 Spinal stenosis, lumbar region without neurogenic claudication (principal); M79.18 Myalgia, other site; M25.78 Osteophyte, vertebrae; M51.37 Other intervertebral disc degeneration, lumbosacral region; M47.817 Spondylosis without myelopathy or radiculopathy, lumbosacral region; M51.27 Other intervertebral disc displacement, lumbosacral region; G89.29 Other chronic pain; Z71.82 Exercise counseling; Z87.891 Personal history of nicotine dependence
CPT/HCPCS: 99211

== ENCOUNTER 2023-12-23 06:53 | Day surgery (SDC) | payer MEDICARE ==
[2023-12-14 10:09] VITALS: BMI 34.3
[~2023-12-23 06:53] MED LIST changes: -ACETAMINOPHEN TAB 500 MG TAB PO ONE; -DEXAMETHASONE SOD PHOSPHATE 10 MG/ML 1 ML VIAL IV ONE; -HYDROmorphone 1 MG/ML 1 ML SYRINGE IVP PRN; +LACTATED RINGERS 1,000 ML IV SCH; -MELOXICAM 7.5 MG TAB PO ONE; -MIDAZOLAM 2 MG/2 ML VIAL IV PRN; -ONDANSETRON 4 MG/2 ML VIAL IVP ONE; -TRANEXAMIC ACID 1,000 MG in SODIUM CHLORIDE 0.9% 100 ML IVPB ONE; -ceFAZolin 2 GM in SODIUM CHLORIDE 0.9% 100 ML IVPB ONE
[2023-12-23 07:26] VITALS: TEMP 98.4
[2023-12-23] MEDS ORDERED: IOPAMIDOL M200 10 ML VIAL ONE (07:52)
[2023-12-23] MEDS ORDERED: methylPREDNISolone ACETATE 80 MG/ML 1 ML VIAL ONE (07:52)
--- NOTE | 2023-12-23 07:57 | P.PCN ---
Date of Procedure: 12/23/23 Procedure(s) Performed: PREOPERATIVE DIAGNOSIS: 1- Lumbar Degenerative Disc Diseases 2-Lumbar spondylosis with Facet arthropathy without myelopathy. POSTOPERATIVE DIAGNOSIS: 1-lumbar degenerative disc disease. 2-lumbar spondylosis with facet arthropathy without myelopathy PROCEDURE 1. Lumbar epidural steroid injection under fluoroscopic guidance at the L4-5 level. (Fluoroscopy imaging was available in radiology department) 2. Lumbar epidurogram. ANESTHESIA: Lidocaine 1% 3 and then only. EBL: Minimal PROCEDURE INDICATION: The patient with low back pain and radiculitis symptoms unresponsive to conservative treatment. Fluoroscopy was used to optimize visualization of the needle placement and to maximize safety. PROCEDURE DESCRIPTION / TECHNIQUE: The patient was seen and identified in the preoperative area. Risks, benefits, complications including but not limited to infections ,bleeding ,allergic reaction to the medications ,nerve damage and not complete pain releife , and alternatives were discussed with the patient. The patient agreed to proceed with the procedure and signed the consent, and vital signs were stable. Patient was taken to the OR and time out was completed. The patient was placed in the prone position on procedure table and a pillow was placed under the abdomen to reduce lumbar lordosis. The lumbosacral area was prepped and draped in the usual sterile fashion.ere closely monitored during the procedure. Vital signs was monitered during the entire procedure. Using anterior-posterior fluoroscopy, the L4-5 interlaminar space was identified and the skin over this site was marked and then infiltrated with 1% lidocaine subcutaneously. Subsequently, a 20-gauge Tuohy epidural needle was inserted and advanced toward the epidural space using the ``Loss of resistance technique and guided by AP and lateral fluoroscopy. The correct needle position in the epi dural space was verified with the injection of 2 mL of the water soluble contrast dye Isovue 200 contrast and observing an excellent epidurogram with the epidural spread of the dye, after negative aspiration for blood and CSF and in the absence of paresthesias. Again after negative aspiration, a 5 ml mixture containing 60 mg of Depo-medrol ( Preservetive Free ), and 2 ml of preservative free Normal Saline, and 2 ml of preservative free lidocaine 1% solution was injected and a washout of epidurogram was seen. Needle was withdrawn intact, skin was cleansed, and bandages were applied. COMPLICATIONS: None DISPOSITION / PLANS: The patient was placed in a supine position and transferred to the recovery area in a stable condition for observation. There was no evidence of lower extremity motor or sensory deficit after the procedure. Patient was discharged from the recovery room after meeting discharge criteria. Home discharge instructions were given to the patient by the staff. The patient was reexamined prior to discharge. The patient will schedule a follow up in the clinic in 2-4 weeks.
[2023-12-23 08:21] VITALS: RESP 20
[2023-12-23 08:31] VITALS: BP 133/77; PULSE 65
--- NOTE | 2023-12-23 12:06 | FL ---
EXAMINATION TYPE: FL guided pain mgmt statistic Intraoperative/procedural fluoroscopic services were provided. Total fluoroscopy time is 3.4 seconds with a total of 2 submitted images to PACS. Please se e the operative/procedural note for further details. DAP: [id number] [id number]
== END 2023-12-23 08:33 | disposition home or self-care (01) ==
LOC: ORPAIN 06:53
PROVIDERS: ATTEND Specialist
DX: M47.26 Other spondylosis with radiculopathy, lumbar region (principal); M51.16 Intervertebral disc disorders with radiculopathy, lumbar region; Z79.82 Long term (current) use of aspirin; Z79.899 Other long term (current) drug therapy
CPT/HCPCS: 62323; Q9966; J1010

== ENCOUNTER → 2024-01-09 | Outpatient (CLI) | payer MEDICARE ==
[2024-01-09 08:32] VITALS: BP 144/82; PULSE 80; RESP 16; TEMP 96.6
--- NOTE | 2024-01-09 15:07 | P.PAINPG ---
Objective - Vital Signs Vital signs: Vital Signs Temp 96.6 F L 01/09/24 08:27 Pulse 80 01/09/24 08:27 Resp 16 01/09/24 08:27 BP 144/82 01/09/24 08:27 Pulse Ox 96 01/09/24 08:27 FiO2 Intake & Output 01/08/24 01/09/24 01/09/24 18:59 06:59 18:59 Weight 90.718 kg PQRS Measure Charge Sheet Mode of Arrival: Ambulatory Comment: HISTORY OF PRESENT ILLNESS: A 73 yr old female presents today w severe and chronic LBP x 1 yr secondary to DDD, spondylosis and facet arthropathy without myelopathy for evaluation s/p COLTON L4-L5 #1. Pt states she experienced 98% pain relief x 2 wks s/p procedure. Pt states pain level is provoked at 6 /10 in intensity, constant, localized in the lumbar spine, predominantly axial, tingling in character w occasional shooting pain towards the back of the LEs. Pain is provoked by walking, standing for periods > 10 min. Pain is alleviated by PT in 2019, physician guided exercises twice daily since Sep 12 2023, heat, medications , topical, repositioning and rest. Oswestry axial pain score at 28. Interventional procedures include COLTON L4-L5 x1 Medications include Tramadol, Tyl, BioFreeze Gel REVIEW OF ORGAN SYSTEMS: CONSTITUTIONAL: No fevers or chills. No recent weight loss. NEUROLOGICAL: + numbness and tingling along the distal extremities. No seizure disorders or headaches. MUSCULOSKELETAL: + pain PSYCHIATRIC: Denies current depression or suicidal thoughts. Physical Examinations : Constitutional : Cooperative , not in acute distress . Neurologic : Cranial nerve II to XII intact. No focal noam rological deficits. Psychiatric : alert & oriented x 3. Matching mood & appropriate affect. Judgment & insight intact. Musculoskeletal : Cervical Spine Motor strength in the deltoid and biceps: Normal right side. Normal Left side Motor strength biceps and the wrist extensors: Normal right side . Normal left side Motor strength in the triceps muscle: Normal right side. Normal left side Deep tendon reflexes: Normal at the biceps. Normal at Brachioradialis. Normal at triceps Vertebral body tenderness to deep pal pation over Cervical facet loading test: positive bilaterally Spurling test: positive bilaterally Neck distraction test: positive bilaterally Fanny sign: positive bilaterally Lumbar spine Motor strength lower extremities ,thigh and legs 5/5 Right side , 5/5 Left side Deep tendon reflexes : Normal Knee Jerk. Normal Ankle Jerk Vertebral body tenderness over L3 Shay Test positive L3-L4 Lumbar facet Loading Test: positive Right / positive Left Range of motion of the lumbar spine Flexion 30 degrees, extension 10 degrees Straight Leg Raise test: Left/ Right positive at degree Paulie test: positive right / positive left. Severe tenderness over the Sacroiliac joint on the Right / Left sides Gaenslen test: positive bilaterally Seated flexion test: positive bilaterally. Sacral spine : Severe tenderness over the Sacroiliac joint: right side / left side Range of motion: Flexion of the lumbar spine <60 degrees Range of motion: Extension of the lumbar spine <20 degrees Gaenslen's Test positive Paulie test: positive right side / left side Thigh Thrust Test Sacral Thrust Test Imaging: X ray of the lumbar spine from MRI of the lumbar spine done on 10/25/2023 showed : L4-L5 left Central disc protrusion which closely approximates the left nerve root in the spinal canal. Moderate disc degeneration with associated osteoarthritis changes with the neural foraminal stenosis worst at L3-L4, L4-L5, and L5-S1 level. Additionally there is an extra foraminal osteophyte which is closely approximates the exiting left L5-S1 nerve. Spinal canal stenosis worst at L3-L4 with moderate spinal stenosis. Assessment/ Plan : Lumbar DDD Recommendation of COLTON L3-L4 #2. Would benefit from L TFESI L4-L5 at a latera time. May need a series of injections for optimal pain relief. Risks, benefits of procedure discussed and pt verbalized understanding. Protocol for discontinuation/ continuation of medications cecilia procedure discussed. All questions answered. I have spent greater than 30 minutes on patient care today. Dr Tavares was available by phone for the evaluation of this patient. The time was used to review the medical records including relevant urine studies and Prescription history (MAPs), review of the available imaging, evaluation and examination of the patient, coordination of care with the medical staff and if applicable refe rring physicians, as well as creation of the medical record - Pain Location Bilateral Lower Back Non-Pharmacological Interventions: Inactivity, Sitting Pharmacological Interventions: Epidural, PRN Medication, Topical Medication PQRS Narrative: Smoking Status Former smoker Blood Pressure 144/82 Pain Intensity [Bilateral 4 Lower Back] Scale Used Numeric (1 - 10) Hx Alcohol Use (MH) No Home Medications: Ambulatory Orders Albuterol Sulfate [Proair Hfa] 2 puff INHALATION RT-Q6H PRN 02/09/16 Esomeprazole Magnesium [NexIUM] 40 mg PO QAM 02/09/16 Fluticasone Nasal [place] [Flonase Nasal [place]] 1 spr EA NOSTRIL HS 02/09/16 Fluticasone Propion/Salmeterol [Advair 250-50 Diskus] 1 puff INHALATION RT-DAILY PRN 02/09/16 Magnesium Gluconate [Magonate] 250 mg PO DAILY 02/09/16 Sertraline [Zoloft] 100 mg PO HS 02/10/16 Aller-Z 10 mg PO DAILY 12/14/23 Aspirin 325 mg PO DAILY 12/14/23 Celecoxib [CeleBREX] 200 mg PO DAILY 12/14/23 Losartan/Hydrochlorothiazide [Losartan-Hctz 100-25 mg Tab] 1 tab PO DAILY 12/14/23 Rosuvastatin Calcium [Crestor] 5 mg PO DAILY 12/14/23 Vit C/E/Zn/Coppr/Lutein/Zeaxan [Preservision Areds 2 Softgel] 2 each PO DAILY 12/14/23 Controlled Substance Measures - Controlled Substance Measures Is patient prescribed a controlled substance at discharge?: Yes When asked, does pt state using other controlled substances?: Yes If prescribed controlled substance>3 days was MAPS reviewed?: Prescribed <3 Days
== END ==
LOC: PNWHC3 08:13
PROVIDERS: ATTEND Specialist
DX: M51.36 Other intervertebral disc degeneration, lumbar region (principal); Z87.891 Personal history of nicotine dependence
CPT/HCPCS: 99211

== ENCOUNTER 2024-01-27 08:28 | Day surgery (SDC) | payer MEDICARE ==
[2024-01-27 08:54] VITALS: RESP 18; TEMP 97.8
[2024-01-27] MEDS ORDERED: IOPAMIDOL M200 10 ML VIAL ONE (08:55)
[2024-01-27] MEDS ORDERED: methylPREDNISolone ACETATE 40 MG/ML 1 ML VIAL ONE (08:55)
--- NOTE | 2024-01-27 09:07 | P.PCN ---
Date of Procedure: 01/27/24 Procedure(s) Performed: PREOPERATIVE DIAGNOSIS: 1- Lumbar Degenerative Disc Diseases 2-Lumbar spondylosis with Facet arthropathy without myelopathy. POSTOPERATIVE DIAGNOSIS: 1-lumbar degenerative disc disease. 2-lumbar spondylosis with facet arthropathy without myelopathy PROCEDURE 1. Lumbar epidural steroid injection under fluoroscopic guidance at the L3-4 level. (Fluoroscopy imaging was available in radiology department) 2. Lumbar epidurogram. ANESTHESIA: Lidocaine 1% 3 and then only. EBL: Minimal PROCEDURE INDICATION: The patient with low back pain and radiculitis symptoms unresponsive to conservative treatment. Fluoroscopy was used to optimize visualization of the needle placement and to maximize safety. PROCEDURE DESCRIPTION / TECHNIQUE: The patient was seen and identified in the preoperative area. Risks, benefits, complications including but not limited to infections ,bleeding ,allergic reaction to the medications ,nerve damage and not complete pain releife , and alternatives were discussed with the patient. The patient agreed to proceed with the procedure and signed the consent, and vital signs were stable. Patient was taken to the OR and time out was completed. The patient was placed in the prone position on procedure table and a pillow was placed under the abdomen to reduce lumbar lordosis. The lumbosacral area was prepped and draped in the usual sterile fashion.ere closely monitored during the procedure. Vital signs was monitered during the entire procedure. Using anterior-posterior fluoroscopy, the L3-4 interlaminar space was identified and the skin over this site was marked and then infiltrated with 1% lidocaine subcutaneously. Subsequently, a 20-gauge Tuohy epidural needle was inserted and advanced toward the epidural space using the ``Loss of resistance technique and guided by AP and lateral fluoroscopy. The correct needle position in the epid ural space was verified with the injection of 2 mL of the water soluble contrast dye Isovue 200 contrast and observing an excellent epidurogram with the epidural spread of the dye, after negative aspiration for blood and CSF and in the absence of paresthesias. Again after negative aspiration, a 5 ml mixture containing 40 mg of Depo-medrol ( Preservetive Free ), and 2 ml of preservative free Normal Saline, and 2 ml of preservative free lidocaine 1% solution was injected and a washout of epidurogram was seen. Needle was withdrawn intact, skin was cleansed, and bandages were applied. COMPLICATIONS: None DISPOSITION / PLANS: The patient was placed in a supine position and transferred to the recovery area in a stable condition for observation. There was no evidence of lower extremity motor or sensory deficit after the procedure. Patient was discharged from the recovery room after meeting discharge criteria. Home discharge instructions were given to the patient by the staff. The patient was reexamined prior to discharge. The patient will schedule a follow up in the clinic in 2-4 weeks.
[2024-01-27 09:26] VITALS: BP 106/69; PULSE 67
--- NOTE | 2024-01-27 09:28 | FL ---
Fluoroscopy History: DEON CHAVARRIA with Edison Smith. 1 image saved. 2.1 sec fluoro time. .[id number] DAP.
== END 2024-01-27 09:41 | disposition home or self-care (01) ==
LOC: ORPAIN 08:28
PROVIDERS: ATTEND Specialist
DX: M47.26 Other spondylosis with radiculopathy, lumbar region (principal); M51.16 Intervertebral disc disorders with radiculopathy, lumbar region; Z79.82 Long term (current) use of aspirin; Z79.1 Long term (current) use of non-steroidal anti-inflammatories (NSAID); Z79.899 Other long term (current) drug therapy
CPT/HCPCS: 62323; Q9966; J1010

== ENCOUNTER → 2024-03-12 | Outpatient (CLI) | payer MEDICARE ==
[2024-03-12 11:24] VITALS: BP 144/83; PULSE 73; RESP 19
--- NOTE | 2024-03-12 15:11 | P.PAINPG ---
PQRS Measure Charge Sheet Comment: HISTORY OF PRESENT ILLNESS: A 73 yr old female presents today w severe and chronic LBP x 1 yr secondary to DDD, spondylosis and facet arthropathy without myelopathy for evaluation s/p COLTON L3-L4 #2. Pt states she experienced 50 % pain relief x 2 wks s/p procedure. Pt states pain level is provoked at 5 /10 in intensity, constant, localized in the lumbar spine, predominantly axial, tingling in character w occasional shooting pain towards the back of the LEs. Pain is provoked by walking, standing for periods > 10 min. Pain is alleviated by PT in 2019, physician guided exercises twice daily since Sep 12 2023, heat, medications , topical, repositioning and rest. Interventional procedures include COLTON L4-L5 x, L3-L4 x1 Medications include Tramadol, Tyl, BioFreeze Gel REVIEW OF ORGAN SYSTEMS: CONSTITUTIONAL: No fevers or chills. No recent weight loss. NEUROLOGICAL: + numbness and tingling along the distal extremities. No seizure disorders or headaches. MUSCULOSKELETAL: + pain PSYCHIATRIC: Denies current depression or suicidal thoughts. Physical Examinations : Constitutional : Cooperative , not in acute distress . Neurologic : Cranial nerve II to XII intact. No focal neurological deficits. Psychiatric : alert & oriented x 3. Matching mood & appropriate affect. Judgment & insight intact. Musculoskeletal : Cervical Spine Motor strength in the deltoid and biceps: Normal right side. Normal Left side Motor strength biceps and the wrist extensors: Normal right side . Normal left side Motor strength in the triceps muscle: Normal right side. Normal left side Deep tendon reflexes: Normal at the biceps. Normal at Brachioradialis. Normal at triceps Vertebral body tenderness to deep palpation over Cervical facet loading test: positive bilaterally Spurling test: positive bilaterally Neck distraction test: positive bilaterally Fanny sign: positive bilaterally Lumbar spine Motor strength lower extremities ,thigh and legs 5/5 Right side , 5/5 Left side Deep tendon reflexes : Normal Knee Jerk. Normal Ankle Jerk Vertebral body tenderness over L3 Shay Test positive L3-L4 Lumbar facet Loading Test: positive Right / positive Left Range of motion of the lumbar spine Flexion 30 degrees, extension 10 degrees Straight Leg Raise test: Left/ Right positive at degree Paulie test: positive right / positive left. Severe tenderness over the Sacroiliac joint on the Right / Left sides Gaenslen test: positive bilaterally Seated flexion test: positive bilaterally. Sacral spine : Severe tenderness over the Sacroiliac joint: right side / left side Range of motion: Flexion of the lumbar spine <60 degrees Range of motion: Extension of the lumbar spine <20 degrees Gaenslen's Test positive Paulie test: positive right side / left side Thigh Thrust Test Sacral Thrust Test Imaging: X ray of the lumbar spine from MRI of the lumbar spine done on 10/25/2023 showed : L4-L5 left Central disc protrusion which closely approximates the left nerve root in the spinal canal. Moderate disc degeneration with associated osteoarthritis changes with the neural foraminal stenosis worst at L3-L4, L4-L5, and L5-S1 level. Additionally there is an extra foraminal osteophyte which is closely approximates the exiting left L5-S1 nerve. Spinal canal stenosis worst at L3-L4 with moderate spinal stenosis. Assessment/ Plan : Lumbar DDD Will manage residual pain and may RTC on an as needed basis. Would benefit from L TFESI L4-L5 at a later time. All questions answered. I have spent greater than 30 minutes on patient care today. Dr Tavares was available by phone for the evaluation of this patient. The time was used to review the medical records including relevant urine studies and Prescription history (MAPs), review of the available imaging, evaluation and examination of the patient, coordination of care with the medical staff and if applicable referring physicians, as well as creation of the medical record PQRS Narrative: Smoking Status Former smoker Hx Alcohol Use (MH) No Home Medications: Ambulatory Orders Albuterol Sulfate [Proair Hfa] 2 puff INHALATION RT-Q6H PRN 02/09/16 Esomeprazole Magnesium [NexIUM] 40 mg PO QAM 02/09/16 Fluticasone Nasal [place] [Flonase Nasal [place]] 1 spr EA NOSTRIL HS 02/09/16 Fluticasone Propion/Salmeterol [Advair 250-50 Diskus] 1 puff INHALATION BID 02/09/16 Magnesium Gluconate [Magonate] 250 mg PO DAILY 02/09/16 Sertraline [Zoloft] 100 mg PO HS 02/10/16 Aller-Z 10 mg PO DAILY 12/14/23 Aspirin 325 mg PO DAILY 12/14/23 Celecoxib [CeleBREX] 200 mg PO DAILY 12/14/23 Losartan/Hydrochlorothiazide [Losartan-Hctz 100-25 mg Tab] 1 tab PO DAILY 12/14/23 Rosuvastatin Calcium [Crestor] 5 mg PO DAILY 12/14/23 Vit C/E/Zn/Coppr/Lutein/Zeaxan [Preservision Areds 2 Softgel] 2 each PO DAILY 12/14/23 diazePAM [Valium] 5 mg PO DAILY PRN 1 Days #2 tab 01/09/24 Controlled Substance Measures - Controlled Substance Measures Is patient prescribed a controlled substance at discharge?: No
== END ==
LOC: PNWHC3 10:48
PROVIDERS: ATTEND Specialist
DX: M54.16 Radiculopathy, lumbar region
CPT/HCPCS: 99211

== ENCOUNTER → 2024-07-12 | Outpatient (CLI) | payer MEDICARE ==
[2024-07-12 09:05] VITALS: BP 159/84; PULSE 82; RESP 16; TEMP 96.8
--- NOTE | 2024-07-12 14:29 | P.PAINPG ---
PQRS Measure Charge Sheet Comment: HISTORY OF PRESENT ILLNESS: A 74 yr old female presents today w severe and chronic LBP x 1 yr secondary to radiculopathy, spondylosis and facet arthropathy without myelopathy for evaluation. Pt states pain level is provoked at 5 /10 in intensity, constant, localized in the lumbar spine, predominantly axial, tingling in character w occasional shooting pain towards the back of the LEs. Pain is provoked by walking, standing for periods > 10 min. Pain is alleviated by PT in 2019, physician guided exercises twice daily since Sep 12 2023, heat, medications , topical, repositioning and rest. Interventional procedures include COLTON L4-L5 x, L3-L4 x1 Medications include Tramadol, Tyl, BioFreeze Gel REVIEW OF ORGAN SYSTEMS: CONSTITUTIONAL: No fevers or chills. No recent weight loss. NEUROLOGICAL: + numbness and tingling along the distal extremities. No seizure disorders or headaches. MUSCULOSKELETAL: + pain PSYCHIATRIC: Denies current depression or suicidal thoughts. Physical Examinations : Constitutional : Cooperative , not in acute distress . Neurologic : Cranial nerve II to XII intact. No focal neurological deficits. Psychiatric : alert & oriented x 3. Matching mood & appropriate affect. Judgment & insight intact. Musculoskeletal : Cervical Spine Motor strength in the deltoid and biceps: Normal right side. Normal Left side Motor strength biceps and the wrist extensors: Normal right side . Normal left side Motor strength in the triceps muscle: Normal right side. Normal left side Deep tendon reflexes: Normal at the biceps. Normal at Brachioradialis. Normal at triceps Vertebral body tenderness to deep palpation over Cervical facet loading test: positive bilaterally Spurling test: positive bilaterally Neck distraction test: positive bilaterally Fanny sign: positive bilaterally Lumbar spine Motor strength lower extremities ,thigh and legs 5/5 Right side , 5/5 Left side Deep tendon reflexes : Normal Knee Jerk. Normal Ankle Jerk Vertebral body tenderness over L4 Shay Test positive L L4-L5 Lumbar facet Loading Test: positive Right / positive Left Range of motion of the lumbar spine Flexion 30 degrees, extension 10 degrees Straight Leg Raise test: Left/ Right positive at degree Paulie test: positive right / positive left. Severe tenderness over the Sacroiliac joint on the Right / Left sides Gaenslen test: positive bilaterally Seated flexion test: positive bilaterally. Sacral spine : Severe tenderness over the Sacroiliac joint: right side / left side Range of motion: Flexion of the lumbar spine <60 degrees Range of motion: Extension of the lumbar spine <20 degrees Gaenslen's Test positive Paulie test: positive right side / left side Thigh Thrust Test Sacral Thrust Test Imaging: X ray of the lumbar spine from MRI of the lumbar spine done on 10/25/2023 showed : L4-L5 left Central disc protrusion which closely approximates the left nerve root in the spinal canal. Moderate disc degeneration with associated osteoarthritis changes with the neural foraminal stenosis worst at L3-L4, L4-L5, and L5-S1 level. Additionally there is an extra foraminal osteophyte which is closely approximates the exiting left L5-S1 nerve. Spinal canal stenosis worst at L3-L4 with moderate spinal stenosis. Assessment/ Plan : Lumbar radiculopathy Recommendation of L TFESI L4-L5 #1. Risks, benefits of procedure discussed and pt verbalized understanding. Protocol for discontinuation/ continuation of medications cecilia procedure discussed. All questions answered. I have spent greater than 30 minutes on patient care today. Dr Tavares was available by phone for the evaluation of this patient. The time was used to review the medical records including relevant urine studies and Prescription history (MAPs), review of the available imaging, evaluation and examination of the patient, coordination of care with the medical staff and if applicable referring physicians, as well as creation of the medical record - Pain Location Bilateral Lower Back Non-Pharmacological Interventions: Heat, Ice, Inactivity, Physical Therapy, Position/Reposition, Sitting Pharmacological Interventions: Epidural, PRN Medication, Scheduled Medication, Topical Medication PQRS Narrative: Smoking Status Former smoker Hx Alcohol Use (MH) No Home Medications: Ambulatory Orders Albuterol Sulfate [Proair Hfa] 2 puff INHALATION RT-Q6H PRN 02/09/16 Esomeprazole Magnesium [NexIUM] 40 mg PO QAM 02/09/16 Fluticasone Nasal [place] [Flonase Nasal [place]] 1 spr EA NOSTRIL HS 02/09/16 Fluticasone Propion/Salmeterol [Advair 250-50 Diskus] 1 puff INHALATION BID 02/09/16 Magnesium Gluconate [Magonate] 250 mg PO DAILY 02/09/16 Sertraline [Zoloft] 100 mg PO HS 02/10/16 Aller-Z 10 mg PO DAILY 06/19/24 Aspirin 325 mg PO DAILY 12/14/23 Celecoxib [CeleBREX] 200 mg PO DAILY 12/14/23 Losartan/Hydrochlorothiazide [Losartan-Hctz 100-25 mg Tab] 1 tab PO DAILY 12/13 Rosuvastatin Calcium [Crestor] 5 mg PO DAILY 12/14/23 Vit C/E/Zn/Coppr/Lutein/Zeaxan [Preservision Areds 2 Softgel] 2 each PO DAILY 12/14/23 diazePAM [Valium] 5 mg PO DAILY PRN 1 Days #2 tab 07/12/24 Controlled Substance Measures - Controlled Substance Measures Is patient prescribed a controlled substance at discharge?: Yes When asked, does pt state using other controlled substances?: Yes If prescribed controlled substance>3 days was MAPS reviewed?: Prescribed <3 Days
== END ==
LOC: PNWHC3 08:43
PROVIDERS: ATTEND Specialist
DX: M54.16 Radiculopathy, lumbar region (principal); Z87.891 Personal history of nicotine dependence
CPT/HCPCS: 99211

== ENCOUNTER 2024-07-27 11:11 | Day surgery (SDC) | payer MEDICARE ==
[2024-07-25 10:56] VITALS: BMI 33.5
[2024-07-27 11:47] VITALS: TEMP 97.8
[2024-07-27] MEDS ORDERED: IOPAMIDOL M200 10 ML VIAL ONE (11:56)
[2024-07-27] MEDS ORDERED: methylPREDNISolone ACETATE 80 MG/ML 1 ML VIAL ONE (11:56)
--- NOTE | 2024-07-27 12:14 | P.PCN ---
Date of Procedure: 07/27/24 Procedure(s) Performed: PREOPERATIVE DIAGNOSIS: 1-Lumbar radiculopathy . 2-lumbar degenerative disc disease. 3-lumbar spondylosis with lumbar facet arthropathy without myelopathy POSTOPERATIVE DIAGNOSIS: 1-lumbar radiculopathy. 2-lumbar degenerative disc disease. 3-lumbar spondylosis with facet arthropathy without myelopathy PROCEDURE 1. Transforaminal epidural steroid injection under fluoroscopic guidance at left L4-5 level. (Fluoroscopy images stored on file in the radiology Department ) 2. Lumbar epidurogram . ANESTHESIA: Local with 1% lidocaine 3 ml. EBL: Minimal PROCEDURE INDICATION: The patient with low back pain and radiculopathy symptoms unresponsive to conservative treatment. PROCEDURE DESCRIPTION / TECHNIQUE: The patient was seen and identified in the preoperative area. Risks, benefits, complications, and alternatives were discussed with the patient. The patient agreed to proceed with the procedure and signed the consent. IV was started, and vital signs were stable. Patient was taken to the OR and time out was completed. The patient was placed in the prone position on procedure table and a pillow was placed under the abdomen to reduce lumbar lordosis. The lumbosacral area was prepped and draped in the usual sterile fashion. Critical pause was taken. Vital signs were closely monitored during the procedure. Using oblique fluoroscopy, the chin of the ``Jay dog at left L4-5 level was identified, and the skin and deeper tissues just below was localized with 1% lidocaine. Subsequently, a 22-gauge 5-inch spinal needle was advanced under a tunneled view fluoroscopic guidance just underneath the chin of the ``Jay dog at the left L4-5 Under lateral fluoroscopy, the needle was then advanced to the posterior border of the interforaminal space. After negative aspiration of CSF and blood and with no paresthesias, 1 mL Isovue 200 contrast dye was in jected excellent epidurogram and outlining of the nerve root Subsequently, 3 mL of block solution containing 60 mg Depo-Medrol and 2 mL of 0.9% normal saline PF was injected. Needle was removed . At the end of the procedure, skin was cleansed, and bandages were applied. COMPLICATIONS:none DISPOSITION / PLANS: The patient was placed in a supine position and transferred to the recovery area in a stable condition for observation. There was no evidence of lower extremity motor or sensory deficit after the procedure. Patient was discharged from the recovery room after meeting discharge criteria. Home discharge instructions were given to the patient by the staff. The patient was reexamined prior to discharge.
[2024-07-27 12:57] VITALS: BP 152/88; PULSE 68; RESP 20
--- NOTE | 2024-07-27 15:18 | FL ---
EXAMINATION TYPE: FL guided pain mgmt statistic DATE OF EXAM: 07/27/2024 FLUOROSCOPY 15 SEC FLUORO, DAP .[id number] mGym2. 1 image is provided of lumbar transforaminal epidural injection [facility], , 07/27/2024 3:15 PM
== END 2024-07-27 13:08 | disposition home or self-care (01) ==
LOC: ORPAIN 11:11
PROVIDERS: ATTEND Specialist
DX: M51.16 Intervertebral disc disorders with radiculopathy, lumbar region (principal); M47.26 Other spondylosis with radiculopathy, lumbar region; Z79.1 Long term (current) use of non-steroidal anti-inflammatories (NSAID)
CPT/HCPCS: 64483; Q9966; J1010

== ENCOUNTER → 2024-12-05 | Outpatient (CLI) | payer MEDICARE ==
[2024-12-05 09:26] VITALS: BP 115/62; PULSE 70; RESP 14; TEMP 97.7
--- NOTE | 2024-12-05 16:02 | P.PAINPG ---
Objective - Vital Signs Vital signs: Intake & Output 12/04/24 12/05/24 12/05/24 18:59 06:59 18:59 Weight 83.007 kg PQRS Measure Charge Sheet Comment: HISTORY OF PRESENT ILLNESS: A 74 yr old female presents today w severe and chronic LBP x 1 yr secondary to radiculopathy, spondylosis and facet arthropathy without myelopathy for evaluation s/p COLTON L4-L5 #4. Pt states she experienced 90 % pain relief x 2 wks s/p procedure. Pt states pain level is provoked at 6 /10 in intensity, intermittent, localized in the R lumbar spine, predominantly axial, sharp in character w occasional shooting pain towards the knees. Pain is provoked by walking, standing for periods > 10 min. Pain is alleviated by PT in 2018, physician guided exercises twice daily since Sep 12 2023, heat, medications , topical, repositioning and rest. Interventional procedures include COLTON L4-L5 x4 (, 02/17, 07/21, 11/18), L3-L4 x1, L TFESI L4-L5 x1 Medications include Tramadol, Tyl, BioFreeze Gel REVIEW OF ORGAN SYSTEMS: CONSTITUTIONAL: No fevers or chills. No recent weight loss. NEUROLOGICAL: + numbness and tingling along the distal extremities. No seizure disorders or headaches. MUSCULOSKELETAL: + pain PSYCHIATRIC: Denies current depression or suicidal thoughts. Physical Examinations : Constitutional : Cooperative , not in acute distress . Neurologic : Cranial nerve II to XII intact. No focal neurological deficits. Psychiatric : alert & oriented x 3. Matching mood & appropriate affect. Judgment & insight intact. Musculoskeletal : Cervical Spine Motor strength in the deltoid and biceps: Normal right side. Normal Left side Motor strength biceps and the wrist extensors: Normal right side . Normal left side Motor strength in the triceps muscle: Normal right side. Normal left side Deep tendon reflexes: Normal at the biceps. Normal at Brachioradialis. Normal at triceps Vertebral body tenderness to deep palpation over Cervical facet loading test: positive bilaterally Spurling test: positive bilaterally Neck distraction test: positive bilaterally Fanny sign: positive bilaterally Lumbar spine Motor strength lower extremities ,thigh and legs 5/5 Right side , 5/5 Left side Deep tendon reflexes : Normal Knee Jerk. Normal Ankle Jerk Vertebral body tenderness over L4 Shay Test positive L L4-L5 Lumbar facet Loading Test: positive Right / positive Left Range of motion of the lumbar spine Flexion 30 degrees, extension 10 degrees Straight Leg Raise test: Left/ Right positive at degree Paulie test: positive right / positive left. Severe tenderness over the Sacroiliac joint on the Right / Left sides Gaenslen test: positive bilaterally Seated flexion test: positive bilaterally. Sacral spine : Severe tenderness over the Sacroiliac joint: right side / left side Range of motion: Flexion of the lumbar spine <60 degrees Range of motion: Extension of the lumbar spine <20 degrees Gaenslen's Test positive Paulie test: positive right side / left side Thigh Thrust Test Sacral Thrust Test Imaging: X ray of the lumbar spine from MRI of the lumbar spine done on 10/25/2023 showed : L4-L5 left Central disc protrusion which closely approximates the left nerve root in the spinal canal. Moderate disc degeneration with associated osteoarthritis changes with the neural foraminal stenosis worst at L3-L4, L4-L5, and L5-S1 level. Additionally there is an extra foraminal osteophyte which is closely approximates the exiting left L5-S1 nerve. Spinal canal stenosis worst at L3-L4 with moderate spinal stenosis. Assessment/ Plan : Lumbar radiculopathy Will manage residual pain and may RTC on an as needed basis. All questions answered. I have spent greater than 30 minutes on patient care today. Dr Tavares was available by phone for the evaluation of this patient. The time was used to review the medical records including relevant urine studies and Prescription history (MAPs), review of the available imaging, evaluation and examination of the patient, coordination of care with the medical staff and if applicable referring physicians, as well as creation of the medical record PQRS Narrative: Smoking Status Former smoker Hx Alcohol Use (MH) No Home Medications: Ambulatory Orders Sertraline [Zoloft] 100 mg PO HS 02/10/16 Rosuvastatin Calcium [Crestor] 5 mg PO QAM 12/14/23 Esomeprazole Magnesium [NexIUM] 40 mg PO QAM 07/25/24 Losartan/Hydrochlorothiazide [Losartan-Hctz 100-25 mg Tab] 1 tab PO DAILY 08/02/24 Ondansetron Odt [Zofran Odt] 4 mg PO Q8HR PRN #20 tab 08/02/24 Pantoprazole [Protonix] 40 mg PO DAILY #30 tab 08/02/24 amLODIPine [Norvasc] 5 mg PO DAILY 08/02/24 Aspirin 325 mg PO DAILY 11/13/24 Celecoxib 200 mg PO Q48H 11/13/24 Ibuprofen [Motrin Ib] 200 mg PO Q8H PRN 11/13/24 Tramadol (Unknown Dose) 1 tab PO BID PRN 11/13/24 ALPRAZolam [Xanax] 0.5 mg PO DAILY PRN 11/15/24 Cholecalciferol [Vitamin D3 (25 Mcg = 1000 Iu)] 50 mcg PO DAILY 11/15/24 Magnesium Oxide [Magnesium] 1,000 mg PO DAILY 11/15/24 Controlled Substance Measures - Controlled Substance Measures Is patient prescribed a controlled substance at discharge?: No
== END ==
LOC: PNWHC3 09:05
PROVIDERS: ATTEND Specialist
DX: M47.26 Other spondylosis with radiculopathy, lumbar region (principal); Z87.891 Personal history of nicotine dependence; Z91.048 Other nonmedicinal substance allergy status
CPT/HCPCS: 99211